=== PATIENT | female | born 1960 | race Caucasian/White ===

== ENCOUNTER 2018-05-31 13:11 | Inpatient (IN) | payer BC, OTHER ==
[2018-05-31 13:19] VITALS: BMI 20.2
--- NOTE | 2018-05-31 13:57 | C.PDOC ---
History Of Present Illness Patient is a 57 year old female, with a PMHx of chronic SOB, lung cancer with mets to the bone, and lung removal in 2018, who presents to the ED c/o left hip and left thigh pain. Patient states that her pain is so bad that she even needs assistance getting up to go to the bathroom. She notes decreased activity and a decrease PO tolerance. She has a remote hx of smoking and no longer does, but states that her is a current smoker. She denies any CP, vomiting, diarrhea, abdominal pain, fever, or chills. Chief Complaint (Nursing): Shortness Of Breath History Per: Patient History/Exam Limitations: no limitations Current Symptoms Are (Timing): Still Present Quality: "Pain" (left thigh and left hip) Associated Symptoms: denies: Fever, Chills, Chest Pain Recent travel outside of the [place]: No Additional History Per: Patient Past Medical History Reviewed: Historical Data, Nursing Documentation, Vital Signs Vital Signs: Last Vital Signs Temp 97.9 F 05/31/18 13:19 Pulse 116 H 05/31/18 13:19 Resp 22 05/31/18 13:19 BP 108/89 05/31/18 13:19 Pulse Ox 96 05/31/18 13:19 - Medical History PMH: Anxiety, Asthma, Bronchitis, COPD Surgical History: No Surg Hx Denies: Pacemaker - [facility] Procedures ENDOSCOPIC BRONCHIAL BX (07/05/13) Family History: States: No Known Family Hx - Social History Hx Alcohol Use: No Hx Substance Use: No - Immunization History Hx Tetanus Toxoid Vaccination: No Hx Influenza Vaccination: No Hx Pneumococcal Vaccination: No Review Of Systems Constitutional: Negative for: Fever, Chills Cardiovascular: Negative for: Chest Pain Respiratory: Positive for: Shortness of Breath (chronic ) Gastrointestinal: Negative for: Vomiting, Abdominal Pain, Diarrhea Musculoskeletal: Positive for: Leg Pain (left thigh and left hip ) Physical Exam - Physical Exam Appears: Non-toxic Skin: Warm, Dry, Pale Eye(s): bilateral: Conjunctiva Pale Oral Mucosa: Dry Neck: Normal ROM, Supple Chest: Symmetrical, No Deformity Cardiovascular: Rhythm Regular, No Murmur Respiratory: Normal Breath Sounds, No Rales, No Rhonchi, No Wheezing Gastrointestinal/Abdominal: Soft, No Tenderness, No Guarding, No Rebound Extremity: No Tenderness (hip joint ), Capillary Refill (less than 2 seconds ) Extremity: Left: Painful To Bear Weight, Unable To Bear Weight (unable to stand or bear weight left hip ) Neurological/Psych: Oriented x3, Normal Speech, Normal Cognition ED Course And Treatment - Laboratory Results Result Diagrams: 06/04/18 07:51 06/04/18 07:51 ECG: Interpreted By Me, Viewed By Me ECG Rhythm: Sinus Tachycardia Interpretation Of ECG: No ST elevation or depression. Rate From EC O2 Sat by Pulse Oximetry: 96 (on RA) Pulse Ox Interpretation: Normal - Other Rad CXR X-Ray: Viewed By Me, Read By Radiologist Interpretation: IMPRESSION: Complete opacification of the right hemithorax which may be related to large pleural effusion, complete lung atelectasis or prior pneumonectomy given presence of sternal wires and right paramediastinal surgical clips. Correlation with surgical history is and any prior imaging is recommended. Alternatively, CT scan of the chest can be obtained for further evaluation. Medical Decision Making Medical Decision Making: Plan: EKG, Bloodwork, CXR ordered and reviewed. IV Fluids administered. Impression: Pain management Multiple calls to Dr. Rodrigues. Unsuccessful. On reassessment, patient is c/o of more pain. Morphine prescribed for pain. Dr. Guthrie called and is aware of patient's chronic pain. 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 Agrees with admission because of her pain. Disposition Discussed With : Bret Benjamin - Disposition Disposition: HOSPITALIZED Disposition Time: 17:56 Condition: GUARDED - POA Present On Arrival: None - Clinical Impression Clinical Impression: Chronic pain due to neoplasm, Unable to ambulate - Scribe Statement The provider has reviewed the documentation as recorded by the Edi Saxena All medical record entries made by the Scribe were at my direction and personally dictated by me. I have reviewed the chart and agree that the record accurately reflects my personal performance of the history, physical exam, medical decision making, and the department course for this patient. I have also personally directed, reviewed, and agree with the discharge instructions and disposition. Decision To Admit - Pt Status Changed To: Hospital Disposition Of: Inpatient - Admit Certification Admit to Inpatient:: After my assessment, the patient will require hospitalization for at least two midnights. This is because of the severity of symptoms shown, intensity of services needed, and/or the medical risk in this patient being treated as an outpatient. - InPatient: Physician Admission Certification: I certify that this patient requires 2 or more midnights of care for the following reason:: chronic pain - . Bed Request Type: Regular Admitting Physician: Bret Benjamin Patient Diagnosis: Chronic pain due to neoplasm, Unable to ambulate
[2018-05-31] MEDS ORDERED: Sodium Chloride 0.9% 500 ML IV ONE (14:21)
[2018-05-31] MEDS ORDERED: Sodium Chloride 0.9% 1,000 ML ONE (14:33)
[2018-05-31 14:34] LABS: BASO % 0.4 % (0.0-2.0); EOS % 0.7 % (0.0-4.0); LYMPH # 0.3 K/uL (1.0-4.3); MEAN CELL VOLUME 88.5 fL (81.0-99.0); MEAN CORPUSCULAR HGB CONC 32.8 g/dL (33.0-37.0); MEAN PLATELET VOLUME 8.6 fL (7.2-11.7); MONO # 0.8 K/uL (0.0-0.8); MONO % 15.6 % (0.0-10.0); NEUT # 3.8 K/uL (1.8-7.0); NEUT % 76.3 % (50.0-75.0); NRBC % 0.1 % (0.0-2.0); PLATELET COUNT 250 K/uL (130-400); RBC 4.12 Mil/uL (3.80-5.20); RED CELL DISTRIBUTION WIDTH 15.8 % (11.5-14.5); WHITE BLOOD COUNT 4.9 K/uL (4.8-10.8)
[2018-05-31 14:45] LABS: BLOOD UREA NITROGEN 13 mg/dL (7-17); CALCIUM 9.5 mg/dl (8.6-10.4); GFR NON-AFRICAN AMERICAN > 60
[2018-05-31 14:49] LABS: ALB/GLOB RATIO 1.2 (1.0-2.1); ALBUMIN 3.9 g/dL (3.5-5.0); ALT/SGPT 17 U/L (9-52); AST/SGOT 32 U/L (14-36)
[2018-05-31 15:11] LABS: BANDS 1 % (0-2); LYMPHOCYTE 4 % (20-40); MONOCYTE 11 % (0-10); NEUTROPHIL 84 % (50-75); PLATELET ESTIMATE NORMAL (NORMAL); TOTAL CELLS COUNTED 100
--- NOTE | 2018-05-31 15:48 | RAD ---
Date of service: 05/31/2018 PROCEDURE: CHEST RADIOGRAPH, 1 VIEW HISTORY: abd pain COMPARISON: Chest radiograph dated 07/05/2013. FINDINGS: LUNGS: Complete opacification of the right hemithorax left lung clear. PLEURA: Complete opacification of the right hemithorax. No no left pleural effusion. No pneumothorax. CARDIOVASCULAR: Prior sternotomy with sternal wires and surgical clips in place. Cardiomediastinal silhouette cannot be adequately evaluated secondary to adjacent, obscuring lung pathology. OSSEOUS STRUCTURES: Unchanged VISUALIZED UPPER ABDOMEN: Normal. OTHER FINDINGS: Left paramediastinal surgical clips. IMPRESSION: Complete opacification of the right hemithorax which may be related to large pleural effusion, complete lung atelectasis or prior pneumonectomy given presence of sternal wires and right paramediastinal surgical clips. Correlation with surgical history is and any prior imaging is recommended. Alternatively, CT scan of the chest can be obtained for further evaluation.
[2018-05-31] MEDS ORDERED: Morphine 4 MG/ML VIAL ONE (18:12)
--- NOTE | 2018-05-31 19:01 | CP.PCM.HP ---
History of Present Illness - History of Present Illness History of Present Illness: 57 year old female, with a PMHx of chronic SOB, lung cancer with mets to the bone, and lung removal in 2018, who presents to the ED c/o left hip and left thigh pain. Patient states that her pain is so bad that she even needs assistance getting up to go to the bathroom. She notes decreased activity and a decrease PO tolerance. She has a remote hx of smoking and no longer does, but states that her is a current smoker. She denies any CP, vomiting, diarrhea, abdominal pain, fever, or chills. Present on Admission - Present on Admission Any Indicators Present on Admission: No History of DVT/PE: No History of Uncontrolled Diabetes: No Urinary Catheter: No Decubitus Ulcer Present: No Review of Systems - Review of Systems All systems: reviewed and no additional remarkable complaints except (As mentioned in HPI) Past Patient History - Past Medical History & Family History Past Medical History?: Yes - Past Social History Smoking Status: Former Smoker - CARDIAC Hx Pacemaker: No - PULMONARY Hx Asthma: Yes Hx Bronchitis: Yes Hx Chronic Obstructive Pulmonary Disease (COPD): Yes - NEUROLOGICAL Hx Paralysis: No - HEMATOLOGICAL/ONCOLOGICAL Hx Blood Transfusions: No - MUSCULOSKELETAL/RHEUMATOLOGICAL Hx Musculoskeletal Disorders: Yes (BONE PAIN IN LEGS) - PSYCHIATRIC Hx Anxiety: Yes Hx Substance Use: No - SURGICAL HISTORY Hx Surgeries: Yes Other/Comment: R lung cancer removed - ANESTHESIA Hx Anesthesia Reactions: No Hx Malignant Hyperthermia: No Meds Allergies/Adverse Reactions: Allergies Allergy/AdvReac Type Severity Reaction Status Date / Time No Known Allergies Allergy Verified 05/31/18 13:19 Physical Exam - Head Exam Head Exam: NORMAL INSPECTION - Eye Exam Eye Exam: Normal appearance - ENT Exam ENT Exam: Mucous Membranes Moist - Respiratory Exam Respiratory Exam: Decreased Breath Sounds - Cardiovascular Exam Cardiovascular Exam: REGULAR RHYTHM, +S1, +S2 - GI/Abdominal Exam GI & Abdominal Exam: Normal Bowel Sounds, Soft - Extremities Exam Extremities exam: Positive for: normal inspection Results - Vital Signs Recent Vital Signs: Last Vital Signs Temp 98.6 F 05/31/18 18:54 Pulse 113 H 05/31/18 18:54 Resp 20 05/31/18 18:54 BP 130/84 05/31/18 18:54 Pulse Ox 98 05/31/18 18:54 - Labs Result Diagrams: 05/31/18 14:29 05/31/18 14:29 Labs: Laboratory Results - last 24 hr 05/31/18 05/31/18 14:29 14:29 WBC 4.9 RBC 4.12 Hgb 12.0 Hct 36.4 MCV 88.5 MCH 29.0 MCHC 32.8 L RDW 15.8 H Plt Count 250 MPV 8.6 Neut % (Auto) 76.3 H Lymph % (Auto) 7.0 L Harlan % (Auto) 15.6 H Eos % (Auto) 0.7 Baso % (Auto) 0.4 Neut # (Auto) 3.8 Lymph # (Auto) 0.3 L Harlan # (Auto) 0.8 Eos # (Auto) 0.0 Baso # (Auto) 0.0 Neutrophils % (Manual) 84 H Band Neutrophils % 1 Lymphocytes % (Manual) 4 L Monocytes % (Manual) 11 H Platelet Estimate Normal RBC Morphology Normal Sodium 136 Potassium 4.0 Chloride 97 L Carbon Dioxide 31 H Anion Gap 12 BUN 13 Creatinine 0.5 L Est GFR ( Amer) > 60 Est GFR (Non-Af Amer) > 60 Random Glucose 105 Calcium 9.5 Total Bilirubin 0.9 AST 32 ALT 17 Alkaline Phosphatase 128 H Total Protein 7.3 Albumin 3.9 Globulin 3.4 Albumin/Globulin Ratio 1.2 Assessment & Plan (1) Chronic pain due to neoplasm Status: Acute (2) Unable to ambulate Status: Acute (3) Metastatic lung cancer (metastasis from lung to other site) Status: Acute (4) Metastatic cancer to lung Status: Acute (5) History of pneumonectomy Status: Acute - Assessment and Plan (Free Text) Plan: Pain control Oncology consult Bronchodilators Brio Ellipta 200/25 mcg 1 puff daily Physical therapy evaluation Very poor prognosis DVT/GI prophylaxis
[2018-05-31] MEDS: HYDROmorphone 1 mg/ml ISec IVP PRN (20:38)
[2018-05-31] MEDS: Albuterol-Ipratrop 3 mg / 0.5 (3 ml) UD INH SCH (21:30)
[2018-06-01] MEDS: HYDROmorphone 1 mg/ml ISec IVP PRN ×5 (00:43→20:13)
[2018-06-01] MEDS: Albuterol-Ipratrop 3 mg / 0.5 (3 ml) UD INH SCH ×5 (01:19→20:09)
[2018-06-01] MEDS: Fluticasone-Vilanterol 200/25mcg Diskus INH SCH (07:20)
--- NOTE | 2018-06-01 08:47 | PN ---
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 She was treated about four years ago with a stage III lung cancer and for this, she received radiation therapy plus chemotherapy and she did quite well for several years, about less than a year ago, may be 11 months ago, she started having rising CEA level and we did a biopsy of the residual mass and here it showed a recurring cancer. She had a complete pneumonectomy at [facility] by Dr. Rufina Carrillo and she seemed to be doing fine. The only residual was severe shortness of breath. She was walking around with only one lung. However, she comes to the office about a month ago and she was in severe pain in her hip and when we evaluated her, she had bone metastasis now and right pleural lesions along the lining of the pleura. We did a biopsy and it was positive for the cancer. The biopsy was just done five days ago and it showed squamous cell carcinoma of the same as what she had four or five years ago. In any event, we just finished radiation therapy to the sacrum, but she is still having severe pain. When she came to the office yesterday, she had more markedly increasing pain as well as shortness of breath, weakness, tiredness. We were not sure if the patient had hypercalcemia, severe anemia, infection, pneumonia as well as the need for pain control. She is seeing an outside pain management service. They gave her a shot and they gave her Vicodin, but this is clearly not helping her. So, we advised admission to the hospital through the ambulance. PHYSICAL EXAMINATION: SKIN: No petechiae. HEENT: Anicteric. NODES: Nonpalpable in the axillary, cervical, supraclavicular, or inguinal regions. LUNGS: Shows some decreased breath sounds on the lung due to the pneumonectomy. BACK: No vertebral tenderness. HEART: S1 and S2, but rate in the office yesterday was at 125 sitting and blood pressure lower was 101. Now, she runs at 124 systolic. ABDOMEN: No organomegaly. EXTREMITIES: No edema. CENTRAL NERVOUS SYSTEM: No focal finding. At present, the laboratory test really were not bad. She did not have hypercalcemia. Her hemoglobin was 12. No hyponatremia. BUN was 13. It was rather surprising in terms of the labs and how she is feeling. She just have complete out one side of the lung. This is due to the pneumonectomy. At this point, she is being put on Dilaudid 1 mg every four hours. She needs better pain control, but if she stays afebrile we will go and discharge her in another day or two. She is due to get chemotherapy as soon as possible with carboplatin and Taxotere as soon as she gets out of the hospital, if possible, but otherwise it will be next week. Joel MD Brandon (Delete this signature block when dictator is a preceptor.) cc: MD Tacho (Delete if not dictated.)
[2018-06-01] MEDS: Enoxaparin 40 mg Syringe SC SCH (10:24)
--- NOTE | 2018-06-01 11:42 | CARD ---
APPROVED REPORT Date of service: 05/31/2018 EKG Measurement Heart [id number] <Conclusion> Sinus tachycardia Otherwise normal ECG
--- NOTE | 2018-06-01 15:44 | CP.PCM.PN ---
Subjective - Date & Time of Evaluation Date of Evaluation: 06/01/18 Time of Evaluation: 15:42 - Subjective Subjective: Patient is seen and examined No events overnight Complains of pain Objective - Vital Signs/Intake and Output Vital Signs (last 24 hours): Temp Pulse Resp BP Pulse Ox 98.5 F 95 H 20 106/72 98 06/01/18 08:00 06/01/18 08:00 06/01/18 08:00 06/01/18 08:00 06/01/18 08:00 Intake and Output: 06/01/18 06/01/18 06:59 18:59 Intake Total 150 240 Balance 150 240 - Medications Medications: Current Medications Albuterol/Ipratropium (Duoneb 3 Mg/0.5 Mg (3 Ml) Ud) 3 ml INH RQ6 [facility] Last Admin: 06/01/18 13:45 Dose: Not Given Enoxaparin Sodium (Lovenox) 40 mg SC DAILY [facility] Last Admin: 06/01/18 10:24 Dose: 40 mg Fluticasone/Vilanterol (Breo Ellipta 200-25 Mcg Inh) 1 puff INH RQD [facility] Last Admin: 06/01/18 07:20 Dose: Not Given Gabapentin (Neurontin) 100 mg PO BID [facility] Last Admin: 06/01/18 10:24 Dose: 100 mg Hydromorphone HCl (Dilaudid) 1 mg IVP Q4H PRN PRN Reason: Pain, severe (8-10) Last Admin: 06/01/18 14:51 Dose: 1 mg Influenza Virus Vaccine (Flucelvax Quad [id number] Syr) 60 mcg IM .ONCE ONE Stop: 06/03/18 10:01 - Labs Labs: 05/31/18 14:29 05/31/18 14:29 - Head Exam Head Exam: NORMAL INSPECTION - Eye Exam Eye Exam: Normal appearance - ENT Exam ENT Exam: Mucous Membranes Moist - Respiratory Exam Respiratory Exam: Clear to Ausculation Bilateral, NORMAL BREATHING PATTERN - Cardiovascular Exam Cardiovascular Exam: REGULAR RHYTHM, +S1, +S2 - GI/Abdominal Exam GI & Abdominal Exam: Soft, Normal Bowel Sounds - Extremities Exam Extremities Exam: Normal Inspection Assessment and Plan (1) Chronic pain due to neoplasm Status: Acute (2) Unable to ambulate Status: Acute (3) Metastatic lung cancer (metastasis from lung to other site) Status: Acute (4) Metastatic cancer to lung Status: Acute (5) History of pneumonectomy Status: Acute - Assessment and Plan (Free Text) Plan: Bronchodilators Brio Ellipta 200/25 mcg 1 puff daily Dilaudid for pain control Supportive care DVT/GI prophylaxis
--- NOTE | 2018-06-01 18:40 | CP.PCM.PN ---
Subjective - Date & Time of Evaluation Date of Evaluation: 06/01/18 Time of Evaluation: 08:00 - Subjective Subjective: clinically same Objective - Vital Signs/Intake and Output Vital Signs (last 24 hours): Temp Pulse Resp BP Pulse Ox 97.3 F L 109 H 20 140/71 95 06/01/18 16:00 06/01/18 16:00 06/01/18 16:00 06/01/18 16:00 06/01/18 16:00 Intake and Output: 06/01/18 06/01/18 06:59 18:59 Intake Total 150 240 Balance 150 240 - Medications Medications: Current Medications Albuterol/Ipratropium (Duoneb 3 Mg/0.5 Mg (3 Ml) Ud) 3 ml INH RQ6 [facility] Last Admin: 06/01/18 13:45 Dose: Not Given Enoxaparin Sodium (Lovenox) 40 mg SC DAILY [facility] Last Admin: 06/01/18 10:24 Dose: 40 mg Fluticasone/Vilanterol (Breo Ellipta 200-25 Mcg Inh) 1 puff INH RQD [facility] Last Admin: 06/01/18 07:20 Dose: Not Given Gabapentin (Neurontin) 100 mg PO BID [facility] Last Admin: 06/01/18 17:30 Dose: 100 mg Hydromorphone HCl (Dilaudid) 1 mg IVP Q4H PRN PRN Reason: Pain, severe (8-10) Last Admin: 06/01/18 14:51 Dose: 1 mg Influenza Virus Vaccine (Flucelvax Quad [id number] Syr) 60 mcg IM .ONCE ONE Stop: 06/03/18 10:01 - Labs Labs: 05/31/18 14:29 05/31/18 14:29 - Constitutional Appears: Well - Head Exam Head Exam: ATRAUMATIC, NORMAL INSPECTION, NORMOCEPHALIC - Eye Exam Eye Exam: EOMI, Normal appearance, PERRL Pupil Exam: NORMAL ACCOMODATION, PERRL - ENT Exam ENT Exam: Mucous Membranes Moist, Normal Exam - Neck Exam Neck Exam: Full ROM, Normal Inspection. absent: Lymphadenopathy - Respiratory Exam Respiratory Exam: Decreased Breath Sounds - Cardiovascular Exam Cardiovascular Exam: REGULAR RHYTHM, +S1, +S2 - GI/Abdominal Exam GI & Abdominal Exam: Soft, Diminished Bowel Sounds - Rectal Exam Rectal Exam: Deferred Assessment and Plan (1) Chronic pain due to neoplasm Status: Acute (2) History of pneumonectomy Status: Acute (3) Metastatic cancer to lung Status: Acute (4) Metastatic lung cancer (metastasis from lung to other site) Status: Acute (5) Unable to ambulate Status: Acute - Assessment and Plan (Free Text) Plan: breo DVT prophylaxis Albuterol Gabapentin Dilaudid patient is in severe pain will discuss with him on Dr. Taylor and pulmonary As ordered
[2018-06-02] MEDS: HYDROmorphone 1 mg/ml ISec IVP PRN ×6 (00:21→22:05)
[2018-06-02] MEDS: Albuterol-Ipratrop 3 mg / 0.5 (3 ml) UD INH SCH ×4 (02:10→20:34)
[2018-06-02] MEDS: Fluticasone-Vilanterol 200/25mcg Diskus INH SCH (07:40)
[2018-06-02] MEDS: Enoxaparin 40 mg Syringe SC SCH (10:30)
--- NOTE | 2018-06-02 15:12 | CP.PCM.PN ---
Objective - Vital Signs/Intake and Output Vital Signs (last 24 hours): Temp Pulse Resp BP Pulse Ox 98.0 F 105 H 20 118/81 95 06/02/18 07:30 06/02/18 07:30 06/02/18 07:30 06/02/18 07:30 06/02/18 07:30 Intake and Output: 06/02/18 06/02/18 06:59 18:59 Intake Total 200 Balance 200 - Medications Medications: Current Medications Albuterol/Ipratropium (Duoneb 3 Mg/0.5 Mg (3 Ml) Ud) 3 ml INH RQ6 [facility] Last Admin: 06/02/18 07:40 Dose: Not Given Enoxaparin Sodium (Lovenox) 40 mg SC DAILY [facility] Last Admin: 06/02/18 10:30 Dose: 40 mg Fentanyl (Duragesic) 1 patch TD Q72H [facility] Last Admin: 06/02/18 12:11 Dose: 1 patch Fluticasone/Vilanterol (Breo Ellipta 200-25 Mcg Inh) 1 puff INH RQD [facility] Last Admin: 06/02/18 07:40 Dose: Not Given Gabapentin (Neurontin) 100 mg PO BID [facility] Last Admin: 06/02/18 10:31 Dose: 100 mg Hydromorphone HCl (Dilaudid) 2 mg IVP Q4H PRN PRN Reason: Pain, severe (8-10) Last Admin: 06/02/18 12:48 Dose: 2 mg Influenza Virus Vaccine (Flucelvax Quad [id number] Syr) 60 mcg IM .ONCE ONE Stop: 06/03/18 10:01 - Labs Labs: 05/31/18 14:29 05/31/18 14:29 Assessment and Plan (1) Chronic pain due to neoplasm Status: Acute (2) Unable to ambulate Status: Acute (3) Metastatic lung cancer (metastasis from lung to other site) Status: Acute (4) Metastatic cancer to lung Status: Acute (5) History of pneumonectomy Status: Acute
--- NOTE | 2018-06-02 20:14 | CP.PCM.PN ---
Subjective - Date & Time of Evaluation Date of Evaluation: 06/02/18 Time of Evaluation: 08:00 - Subjective Subjective: clinically same Objective - Vital Signs/Intake and Output Vital Signs (last 24 hours): Temp Pulse Resp BP Pulse Ox 97.8 F 111 H 20 101/69 95 06/02/18 16:13 06/02/18 16:13 06/02/18 16:13 06/02/18 16:13 06/02/18 16:13 - Medications Medications: Current Medications Albuterol/Ipratropium (Duoneb 3 Mg/0.5 Mg (3 Ml) Ud) 3 ml INH RQ6 [facility] Last Admin: 06/02/18 13:20 Dose: Not Given Enoxaparin Sodium (Lovenox) 40 mg SC DAILY [facility] Last Admin: 06/02/18 10:30 Dose: 40 mg Fentanyl (Duragesic) 1 patch TD Q72H [facility] Last Admin: 06/02/18 12:11 Dose: 1 patch Fluticasone/Vilanterol (Breo Ellipta 200-25 Mcg Inh) 1 puff INH RQD [facility] Last Admin: 06/02/18 07:40 Dose: Not Given Gabapentin (Neurontin) 100 mg PO BID [facility] Last Admin: 06/02/18 18:04 Dose: 100 mg Hydromorphone HCl (Dilaudid) 2 mg IVP Q4H PRN PRN Reason: Pain, severe (8-10) Last Admin: 06/02/18 17:02 Dose: 2 mg Influenza Virus Vaccine (Flucelvax Quad [id number] Syr) 60 mcg IM .ONCE ONE Stop: 06/03/18 10:01 - Labs Labs: 05/31/18 14:29 05/31/18 14:29 - Constitutional Appears: Well - Head Exam Head Exam: ATRAUMATIC, NORMAL INSPECTION, NORMOCEPHALIC - Eye Exam Eye Exam: EOMI, Normal appearance, PERRL Pupil Exam: NORMAL ACCOMODATION, PERRL - ENT Exam ENT Exam: Mucous Membranes Moist, Normal Exam - Neck Exam Neck Exam: Full ROM, Normal Inspection. absent: Lymphadenopathy - Respiratory Exam Respiratory Exam: Decreased Breath Sounds - Cardiovascular Exam Cardiovascular Exam: REGULAR RHYTHM, +S1, +S2 - GI/Abdominal Exam GI & Abdominal Exam: Soft, Diminished Bowel Sounds - Rectal Exam Rectal Exam: Deferred Assessment and Plan (1) Chronic pain due to neoplasm Status: Acute (2) History of pneumonectomy Status: Acute (3) Metastatic cancer to lung Status: Acute (4) Metastatic lung cancer (metastasis from lung to other site) Status: Acute (5) Unable to ambulate Status: Acute - Assessment and Plan (Free Text) Plan: Spoke to Dr. Taylor today morning who wants patients to some kind of a patch so patch add a Duragesic patch will see how effective it will be Case discussed with the patient at length Continue Brio Continue DuoNeb As ordered
[2018-06-03] MEDS: Albuterol-Ipratrop 3 mg / 0.5 (3 ml) UD INH SCH ×4 (02:12→19:15)
[2018-06-03] MEDS: HYDROmorphone 1 mg/ml ISec IVP PRN ×3 (02:17→12:05)
[2018-06-03] MEDS: Fluticasone-Vilanterol 200/25mcg Diskus INH SCH (07:40)
[2018-06-03] MEDS ORDERED: Influenza Vaccine 60 mcg/0.5 mL SYR (4YR UP) IM ONE (10:00)
[2018-06-03] MEDS: Enoxaparin 40 mg Syringe SC SCH (10:06)
[2018-06-03] MEDS: Magnesium Hydroxide Susp 30 ml UD PO SCH (10:06)
--- NOTE | 2018-06-03 15:00 | CP.PCM.PN ---
Subjective - Date & Time of Evaluation Date of Evaluation: 06/03/18 Time of Evaluation: 15:00 Objective - Vital Signs/Intake and Output Vital Signs (last 24 hours): Temp Pulse Resp BP Pulse Ox 98.0 F 102 H 20 116/76 95 06/03/18 07:43 06/03/18 07:43 06/03/18 07:43 06/03/18 07:43 06/03/18 07:43 Intake and Output: 06/03/18 06/03/18 06:59 18:59 Intake Total 120 480 Balance 120 480 - Medications Medications: Current Medications Albuterol/Ipratropium (Duoneb 3 Mg/0.5 Mg (3 Ml) Ud) 3 ml INH RQ6 [facility] Last Admin: 06/03/18 13:40 Dose: Not Given Enoxaparin Sodium (Lovenox) 40 mg SC DAILY [facility] Last Admin: 06/03/18 10:06 Dose: 40 mg Fentanyl (Duragesic) 1 patch TD Q72H [facility] Last Admin: 06/03/18 10:06 Dose: 1 patch Fluticasone/Vilanterol (Breo Ellipta 200-25 Mcg Inh) 1 puff INH RQD [facility] Last Admin: 06/03/18 07:40 Dose: Not Given Gabapentin (Neurontin) 100 mg PO BID [facility] Last Admin: 06/03/18 10:06 Dose: 100 mg Hydromorphone HCl (Dilaudid) 2 mg IVP Q4H PRN PRN Reason: Pain, severe (8-10) Last Admin: 06/03/18 12:05 Dose: 2 mg Magnesium Hydroxide (Milk Of Magnesia) 30 ml PO DAILY [facility] Last Admin: 06/03/18 10:06 Dose: 30 ml - Labs Labs: 05/31/18 14:29 05/31/18 14:29 Assessment and Plan (1) Chronic pain due to neoplasm Status: Acute (2) Unable to ambulate Status: Acute (3) Metastatic lung cancer (metastasis from lung to other site) Status: Acute (4) Metastatic cancer to lung Status: Acute (5) History of pneumonectomy Status: Acute
--- NOTE | 2018-06-03 17:15 | CP.PCM.PN ---
Subjective - Date & Time of Evaluation Date of Evaluation: 06/03/18 Time of Evaluation: 08:00 - Subjective Subjective: clinically same Objective - Vital Signs/Intake and Output Vital Signs (last 24 hours): Temp Pulse Resp BP Pulse Ox 98.4 F 114 H 20 97/67 L 95 06/03/18 15:24 06/03/18 15:24 06/03/18 15:24 06/03/18 15:24 06/03/18 15:24 Intake and Output: 06/03/18 06/03/18 06:59 18:59 Intake Total 120 480 Balance 120 480 - Medications Medications: Current Medications Albuterol/Ipratropium (Duoneb 3 Mg/0.5 Mg (3 Ml) Ud) 3 ml INH RQ6 [facility] Last Admin: 06/03/18 13:40 Dose: Not Given Enoxaparin Sodium (Lovenox) 40 mg SC DAILY [facility] Last Admin: 06/03/18 10:06 Dose: 40 mg Fentanyl (Duragesic) 1 patch TD Q72H [facility] Last Admin: 06/03/18 10:06 Dose: 1 patch Fluticasone/Vilanterol (Breo Ellipta 200-25 Mcg Inh) 1 puff INH RQD [facility] Last Admin: 06/03/18 07:40 Dose: Not Given Gabapentin (Neurontin) 100 mg PO BID [facility] Last Admin: 06/03/18 10:06 Dose: 100 mg Hydromorphone HCl (Dilaudid) 2 mg IVP Q4H PRN PRN Reason: Pain, severe (8-10) Last Admin: 06/03/18 12:05 Dose: 2 mg Magnesium Hydroxide (Milk Of Magnesia) 30 ml PO DAILY [facility] Last Admin: 06/03/18 10:06 Dose: 30 ml - Labs Labs: 05/31/18 14:29 05/31/18 14:29 - Constitutional Appears: Well - Head Exam Head Exam: ATRAUMATIC, NORMAL INSPECTION, NORMOCEPHALIC - Eye Exam Eye Exam: EOMI, Normal appearance, PERRL Pupil Exam: NORMAL ACCOMODATION, PERRL - ENT Exam ENT Exam: Mucous Membranes Moist, Normal Exam - Neck Exam Neck Exam: Full ROM, Normal Inspection. absent: Lymphadenopathy - Respiratory Exam Respiratory Exam: Decreased Breath Sounds - Cardiovascular Exam Cardiovascular Exam: REGULAR RHYTHM, +S1, +S2 - GI/Abdominal Exam GI & Abdominal Exam: Soft, Diminished Bowel Sounds - Rectal Exam Rectal Exam: Deferred Assessment and Plan - Assessment and Plan (Free Text) Plan: Abdominal patch is helping the patient's I discussed with Dr. bella Discussed with the patient's Mary Calles As ordered
[2018-06-03] MEDS ORDERED: HYDROmorphone 1 mg/ml ISec IVP STA (17:31)
[2018-06-04] MEDS: Albuterol-Ipratrop 3 mg / 0.5 (3 ml) UD INH SCH ×3 (01:31→21:09)
[2018-06-04] MEDS: HYDROmorphone 1 mg/ml ISec IVP PRN (04:04)
[2018-06-04] MEDS: Fluticasone-Vilanterol 200/25mcg Diskus INH SCH (07:40)
[2018-06-04 08:03] LABS: BASO % 0.4 % (0.0-2.0); EOS % 0.7 % (0.0-4.0); HEMOGLOBIN 11.5 g/dL (11.0-16.0); LYMPH # 0.5 K/uL (1.0-4.3); LYMPH % 13.5 % (20.0-40.0); MEAN CELL VOLUME 88.5 fL (81.0-99.0); MEAN CORPUSCULAR HEMOGLOBIN 29.1 pg (27.0-31.0); MEAN CORPUSCULAR HGB CONC 32.9 g/dL (33.0-37.0); MEAN PLATELET VOLUME 8.5 fL (7.2-11.7); MONO # 0.6 K/uL (0.0-0.8); MONO % 18.7 % (0.0-10.0); NEUT # 2.3 K/uL (1.8-7.0); NEUT % 66.7 % (50.0-75.0); RBC 3.94 Mil/uL (3.80-5.20); RED CELL DISTRIBUTION WIDTH 15.6 % (11.5-14.5); WHITE BLOOD COUNT 3.5 K/uL (4.8-10.8)
[2018-06-04 08:13] LABS: BLOOD UREA NITROGEN 13 mg/dL (7-17); GFR NON-AFRICAN AMERICAN > 60
[2018-06-04] MEDS: Magnesium Hydroxide Susp 30 ml UD PO SCH (09:10)
[2018-06-04] MEDS: Enoxaparin 40 mg Syringe SC SCH (09:11)
--- NOTE | 2018-06-04 14:17 | CON ---
DATE: 06/04/2018 ONCOLOGY CONSULTATION HISTORY OF PRESENT ILLNESS: This is a 57-year-old woman with lung cancer widely metastatic to her bones. She is really being admitted to the hospital for severe pain in her legs specifically just generalized. We had just finished radiation therapy to the hip, but she is still in severe pain. We finally got her up to Duragesic patch of 75, and on that dose, lying in bed is far, far more comfortable. I am also giving her milk of magnesia 30 mL p.o. to prevent constipation from that kind of a dose and that she should take every day. She still has pain when she is just getting out of the bed and sitting up she has pain, but her blood pressure is about 100 and so it is hard to continue to increase the pain medicines. We are not going to get her in perfect control. She is due for chemotherapy in the office as soon as she gets out of the hospital. We can start her on Thursday or Thursday, so I told her if she is discharged over the weekend, she knows to see me on Thursday; if she is still here on Thursday, I will be seeing her. In the meantime, she has a Duragesic patch that was started at 75 on , and she will run out of that patch by Thursday, so she will need to have beyond discharge a Duragesic patch of 75. Joel Taylor MD
--- NOTE | 2018-06-04 17:44 | CP.PCM.PN ---
Subjective - Date & Time of Evaluation Date of Evaluation: 06/04/18 Time of Evaluation: 17:44 Objective - Vital Signs/Intake and Output Vital Signs (last 24 hours): Temp Pulse Resp BP Pulse Ox 101.7 F H 111 H 20 100/68 96 06/04/18 16:06 06/04/18 07:55 06/04/18 07:55 06/04/18 07:55 06/04/18 07:55 Intake and Output: 06/04/18 06/04/18 06:59 18:59 Intake Total 820 Balance 820 - Medications Medications: Current Medications Acetaminophen (Tylenol 325mg Tab) 650 mg PO Q6 PRN PRN Reason: Fever >100.4 F Last Admin: 06/04/18 16:06 Dose: 650 mg Albuterol/Ipratropium (Duoneb 3 Mg/0.5 Mg (3 Ml) Ud) 3 ml INH RQ6 [facility] Last Admin: 06/04/18 07:40 Dose: Not Given Enoxaparin Sodium (Lovenox) 40 mg SC DAILY [facility] Last Admin: 06/04/18 09:11 Dose: 40 mg Fentanyl (Duragesic) 1 patch TD Q72H [facility] Last Admin: 06/04/18 17:08 Dose: 1 patch Fluticasone/Vilanterol (Breo Ellipta 200-25 Mcg Inh) 1 puff INH RQD [facility] Last Admin: 06/04/18 07:40 Dose: Not Given Hydromorphone HCl (Dilaudid) 2 mg IVP Q4H PRN PRN Reason: Pain, severe (8-10) Last Admin: 06/04/18 04:04 Dose: 2 mg Ceftriaxone Sodium 500 mg/ (Sodium Chloride) 100 mls @ 100 mls/hr IVPB Q24H [facility]; Protocol Magnesium Hydroxide (Milk Of Magnesia) 30 ml PO DAILY [facility] Last Admin: 06/04/18 09:10 Dose: 30 ml - Labs Labs: 06/04/18 07:51 06/04/18 07:51 Assessment and Plan (1) Chronic pain due to neoplasm Status: Acute (2) Unable to ambulate Status: Acute (3) Metastatic lung cancer (metastasis from lung to other site) Status: Acute (4) Metastatic cancer to lung Status: Acute (5) History of pneumonectomy Status: Acute
--- NOTE | 2018-06-04 19:57 | CP.PCM.PN ---
Subjective - Date & Time of Evaluation Date of Evaluation: 06/04/18 Time of Evaluation: 08:00 - Subjective Subjective: clinically same Objective - Vital Signs/Intake and Output Vital Signs (last 24 hours): Temp Pulse Resp BP Pulse Ox 101.7 F H 120 H 20 101/71 95 06/04/18 16:06 06/04/18 16:00 06/04/18 16:00 06/04/18 16:00 06/04/18 16:00 Intake and Output: 06/04/18 06/05/18 18:59 06:59 Intake Total 820 Balance 820 - Medications Medications: Current Medications Acetaminophen (Tylenol 325mg Tab) 650 mg PO Q6 PRN PRN Reason: Fever >100.4 F Last Admin: 06/04/18 16:06 Dose: 650 mg Albuterol/Ipratropium (Duoneb 3 Mg/0.5 Mg (3 Ml) Ud) 3 ml INH RQ6 [facility] Last Admin: 06/04/18 07:40 Dose: Not Given Enoxaparin Sodium (Lovenox) 40 mg SC DAILY [facility] Last Admin: 06/04/18 09:11 Dose: 40 mg Fentanyl (Duragesic) 1 patch TD Q72H [facility] Last Admin: 06/04/18 17:08 Dose: 1 patch Fluticasone/Vilanterol (Breo Ellipta 200-25 Mcg Inh) 1 puff INH RQD [facility] Last Admin: 06/04/18 07:40 Dose: Not Given Hydromorphone HCl (Dilaudid) 2 mg IVP Q4H PRN PRN Reason: Pain, severe (8-10) Last Admin: 06/04/18 04:04 Dose: 2 mg Cefepime HCl 2 gm/ Dextrose 50 mls @ 100 mls/hr IVPB Q12H [facility]; Protocol Vancomycin HCl 1,000 mg/ (Sodium Chloride) 250 mls @ 166.6 mls/hr IVPB Q12H [facility]; Protocol Magnesium Hydroxide (Milk Of Magnesia) 30 ml PO DAILY [facility] Last Admin: 06/04/18 09:10 Dose: 30 ml - Labs Labs: 06/04/18 07:51 06/04/18 07:51 - Constitutional Appears: Well - Head Exam Head Exam: ATRAUMATIC, NORMAL INSPECTION, NORMOCEPHALIC - Eye Exam Eye Exam: EOMI, Normal appearance, PERRL Pupil Exam: NORMAL ACCOMODATION, PERRL - ENT Exam ENT Exam: Mucous Membranes Moist, Normal Exam - Neck Exam Neck Exam: Full ROM, Normal Inspection. absent: Lymphadenopathy - Respiratory Exam Respiratory Exam: Decreased Breath Sounds - Cardiovascular Exam Cardiovascular Exam: REGULAR RHYTHM, +S1, +S2 - GI/Abdominal Exam GI & Abdominal Exam: Soft, Diminished Bowel Sounds - Rectal Exam Rectal Exam: Deferred Assessment and Plan (1) Chronic pain due to neoplasm Status: Acute (2) History of pneumonectomy Status: Acute (3) Metastatic cancer to lung Status: Acute (4) Metastatic lung cancer (metastasis from lung to other site) Status: Acute (5) Unable to ambulate Status: Acute
[2018-06-04] MEDS: Vancomycin 1 gm/NS 200 ml 1 GM/200 ML BAG IVPB SCH (21:08)
[2018-06-04] MEDS: Cefepime 2 GM in Dextrose 5% In Water 100 ML IVPB SCH (22:54)
[2018-06-05] MEDS: Albuterol-Ipratrop 3 mg / 0.5 (3 ml) UD INH SCH ×3 (01:00→13:39)
[2018-06-05] MEDS: Vancomycin 1 gm/NS 200 ml 1 GM/200 ML BAG IVPB SCH ×2 (07:57→20:31)
[2018-06-05] MEDS: Fluticasone-Vilanterol 200/25mcg Diskus INH SCH (08:23)
[2018-06-05] MEDS: Enoxaparin 40 mg Syringe SC SCH (11:36)
[2018-06-05] MEDS: Magnesium Hydroxide Susp 30 ml UD PO SCH (11:36)
[2018-06-05] MEDS: Cefepime 2 GM in Dextrose 5% In Water 100 ML IVPB SCH ×2 (11:39→21:21)
--- NOTE | 2018-06-05 11:43 | CP.PCM.PN ---
Subjective - Date & Time of Evaluation Date of Evaluation: 06/05/18 Time of Evaluation: 08:00 - Subjective Subjective: clinically same Objective - Vital Signs/Intake and Output Vital Signs (last 24 hours): Temp Pulse Resp BP Pulse Ox 99.9 F H 111 H 20 108/68 95 06/05/18 08:00 06/05/18 08:00 06/05/18 08:00 06/05/18 08:00 06/05/18 08:00 Intake and Output: 06/05/18 06/05/18 06:59 18:59 Intake Total 850 Output Total 400 Balance 450 - Medications Medications: Current Medications Acetaminophen (Tylenol 325mg Tab) 650 mg PO Q6 PRN PRN Reason: Fever >100.4 F Last Admin: 06/05/18 00:00 Dose: 650 mg Albuterol/Ipratropium (Duoneb 3 Mg/0.5 Mg (3 Ml) Ud) 3 ml INH RQ6 [facility] Last Admin: 06/05/18 08:23 Dose: Not Given Enoxaparin Sodium (Lovenox) 40 mg SC DAILY [facility] Last Admin: 06/05/18 11:36 Dose: 40 mg Fentanyl (Duragesic) 1 patch TD Q72H [facility] Last Admin: 06/04/18 17:08 Dose: 1 patch Fluticasone/Vilanterol (Breo Ellipta 200-25 Mcg Inh) 1 puff INH RQD [facility] Last Admin: 06/05/18 08:23 Dose: Not Given Hydromorphone HCl (Dilaudid) 2 mg IVP Q4H PRN PRN Reason: Pain, severe (8-10) Last Admin: 06/04/18 04:04 Dose: 2 mg Cefepime HCl 2 gm/ Dextrose 100 mls @ 100 mls/hr IVPB Q12H [facility]; Protocol Last Admin: 06/05/18 11:39 Dose: 100 mls/hr Vancomycin/Sodium Chloride (Vancomycin 1 Gm/Ns 200 Ml) 1 gm in 200 mls @ 133.333 mls/hr IVPB Q12H [facility]; Protocol Last Admin: 06/05/18 07:57 Dose: 133.333 mls/hr Magnesium Hydroxide (Milk Of Magnesia) 30 ml PO DAILY [facility] Last Admin: 06/05/18 11:36 Dose: 30 ml - Labs Labs: 06/04/18 07:51 06/04/18 07:51 - Constitutional Appears: Well - Head Exam Head Exam: ATRAUMATIC, NORMAL INSPECTION, NORMOCEPHALIC - Eye Exam Eye Exam: EOMI, Normal appearance, PERRL Pupil Exam: NORMAL ACCOMODATION, PERRL - ENT Exam ENT Exam: Mucous Membranes Moist, Normal Exam - Neck Exam Neck Exam: Full ROM, Normal Inspection. absent: Lymphadenopathy - Respiratory Exam Respiratory Exam: Decreased Breath Sounds - Cardiovascular Exam Cardiovascular Exam: REGULAR RHYTHM, +S1, +S2 - GI/Abdominal Exam GI & Abdominal Exam: Soft, Diminished Bowel Sounds - Rectal Exam Rectal Exam: Deferred Assessment and Plan (1) Chronic pain due to neoplasm Status: Acute (2) History of pneumonectomy Status: Acute (3) Metastatic cancer to lung Status: Acute (4) Metastatic lung cancer (metastasis from lung to other site) Status: Acute (5) Unable to ambulate Status: Acute
--- NOTE | 2018-06-05 18:51 | CP.PCM.CON ---
History of Present Illness - History of Present Illness History of Present Illness: dictated Past Patient History - Past Medical History & Family History Past Medical History?: Yes - Past Social History Smoking Status: Former Smoker - CARDIAC Hx Pacemaker: No - PULMONARY Hx Asthma: Yes Hx Bronchitis: Yes Hx Chronic Obstructive Pulmonary Disease (COPD): Yes - NEUROLOGICAL Hx Paralysis: No - HEMATOLOGICAL/ONCOLOGICAL Hx Blood Transfusions: No - MUSCULOSKELETAL/RHEUMATOLOGICAL Hx Musculoskeletal Disorders: Yes (BONE PAIN IN LEGS) - PSYCHIATRIC Hx Anxiety: Yes Hx Substance Use: No - SURGICAL HISTORY Hx Surgeries: Yes Other/Comment: R lung cancer removed - ANESTHESIA Hx Anesthesia Reactions: No Hx Malignant Hyperthermia: No Meds Allergies/Adverse Reactions: Allergies Allergy/AdvReac Type Severity Reaction Status Date / Time No Known Allergies Allergy Verified 05/31/18 13:19 - Medications Medications: Current Medications Acetaminophen (Tylenol 325mg Tab) 650 mg PO Q6 PRN PRN Reason: Fever >100.4 F Last Admin: 06/05/18 00:00 Dose: 650 mg Albuterol/Ipratropium (Duoneb 3 Mg/0.5 Mg (3 Ml) Ud) 3 ml INH RQ6 [facility] Last Admin: 06/05/18 13:39 Dose: 3 ml Enoxaparin Sodium (Lovenox) 40 mg SC DAILY [facility] Last Admin: 06/05/18 11:36 Dose: 40 mg Fentanyl (Duragesic) 1 patch TD Q72H [facility] Last Admin: 06/04/18 17:08 Dose: 1 patch Fluticasone/Vilanterol (Breo Ellipta 200-25 Mcg Inh) 1 puff INH RQD [facility] Last Admin: 06/05/18 08:23 Dose: Not Given Hydromorphone HCl (Dilaudid) 2 mg IVP Q4H PRN PRN Reason: Pain, severe (8-10) Last Admin: 06/04/18 04:04 Dose: 2 mg Cefepime HCl 2 gm/ Dextrose 100 mls @ 100 mls/hr IVPB Q12H [facility]; Protocol Last Admin: 06/05/18 11:39 Dose: 100 mls/hr Vancomycin/Sodium Chloride (Vancomycin 1 Gm/Ns 200 Ml) 1 gm in 200 mls @ 133.333 mls/hr IVPB Q12H [facility]; Protocol Last Admin: 06/05/18 07:57 Dose: 133.333 mls/hr Magnesium Hydroxide (Milk Of Magnesia) 30 ml PO DAILY PRN PRN Reason: Constipation Results - Vital Signs Recent Vital Signs: Last Vital Signs Temp 98.9 F 06/05/18 16:00 Pulse 116 H 06/05/18 16:00 Resp 20 06/05/18 16:00 BP 92/59 L 06/05/18 16:00 Pulse Ox 97 06/05/18 16:00 - Labs Result Diagrams: 06/04/18 07:51 06/04/18 07:51
--- NOTE | 2018-06-05 19:33 | CP.PCM.PN ---
Subjective - Date & Time of Evaluation Date of Evaluation: 06/05/18 Time of Evaluation: 19:33 Objective - Vital Signs/Intake and Output Vital Signs (last 24 hours): Temp Pulse Resp BP Pulse Ox 98.9 F 116 H 20 92/59 L 97 06/05/18 16:00 06/05/18 16:00 06/05/18 16:00 06/05/18 16:00 06/05/18 16:00 - Medications Medications: Current Medications Acetaminophen (Tylenol 325mg Tab) 650 mg PO Q6 PRN PRN Reason: Fever >100.4 F Last Admin: 06/05/18 00:00 Dose: 650 mg Albuterol/Ipratropium (Duoneb 3 Mg/0.5 Mg (3 Ml) Ud) 3 ml INH RQ6 [facility] Last Admin: 06/05/18 13:39 Dose: 3 ml Enoxaparin Sodium (Lovenox) 40 mg SC DAILY [facility] Last Admin: 06/05/18 11:36 Dose: 40 mg Fentanyl (Duragesic) 1 patch TD Q72H [facility] Last Admin: 06/04/18 17:08 Dose: 1 patch Fluticasone/Vilanterol (Breo Ellipta 200-25 Mcg Inh) 1 puff INH RQD [facility] Last Admin: 06/05/18 08:23 Dose: Not Given Hydromorphone HCl (Dilaudid) 2 mg IVP Q4H PRN PRN Reason: Pain, severe (8-10) Last Admin: 06/04/18 04:04 Dose: 2 mg Cefepime HCl 2 gm/ Dextrose 100 mls @ 100 mls/hr IVPB Q12H [facility]; Protocol Last Admin: 06/05/18 11:39 Dose: 100 mls/hr Vancomycin/Sodium Chloride (Vancomycin 1 Gm/Ns 200 Ml) 1 gm in 200 mls @ 133.333 mls/hr IVPB Q12H [facility]; Protocol Last Admin: 06/05/18 07:57 Dose: 133.333 mls/hr Magnesium Hydroxide (Milk Of Magnesia) 30 ml PO DAILY PRN PRN Reason: Constipation - Labs Labs: 06/04/18 07:51 06/04/18 07:51 Assessment and Plan (1) Chronic pain due to neoplasm Status: Acute (2) Unable to ambulate Status: Acute (3) Metastatic lung cancer (metastasis from lung to other site) Status: Acute (4) Metastatic cancer to lung Status: Acute (5) History of pneumonectomy Status: Acute
[2018-06-05] MEDS ORDERED: Sodium Chloride 0.9% 1,000 ML IV SCH (20:30)
[2018-06-05] MEDS: Lidocaine 5% Patch TD SCH (20:30)
[2018-06-05] MEDS: HYDROmorphone 1 mg/ml ISec IVP PRN (21:27)
[2018-06-06] MEDS: HYDROmorphone 1 mg/ml ISec IVP PRN (03:50)
--- NOTE | 2018-06-06 07:01 | CON ---
DATE: 06/05/2018 INFECTIOUS DISEASE CONSULT REQUESTED BY: Dayron Zambrano MD HISTORY OF PRESENT ILLNESS: This patient is a 57-year-old female. She has history of lung cancer with mets to the bone. She came in with the left hip pain and left thigh pain, and she is having fevers. Hence, I am asked to evaluate her. She has been having pain so bad. 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 She shows me the area where she is getting left hip radiation. She says she is done with the radiation at this time. She is denying any cough. No fever. No chills. No chest pain. No vomiting. No diarrhea. She has no Port-A-Cath, and she has a peripheral IV at this time. REVIEW OF SYSTEMS: She denies any headache. Denies any ear, nose, or throat problems. Denies any difficulty swallowing. No chest pain. No shortness of breath. No nausea, no vomiting at this time. Does complain of some diarrhea, and she had two BMs today. Yesterday, she has had 5 or 6 and loose BM. She saying no nausea and denies abdominal pain, and does have pain in the left hip and has difficulty ambulating, and no skin lesions present. PAST MEDICAL HISTORY: She has a past medical history shows former smoker, history of pacemaker, history of asthma, bronchitis, COPD, and NO ALLERGIES. He does have some anxiety issues. She has bone pains, and she has mets. Blood transfusion is not now. She has history of COPD, asthma, and bronchitis. She has no pacemaker. She is a former smoker. ALLERGIES: I FIND SHE IS NOT ALLERGIC TO ANY MEDICINE. MEDICATIONS: She is on Tylenol. She is on DuoNeb and cefepime 2 g every 12 which was started yesterday, on Lovenox, fentanyl patch. Fluticasone was not given. She is on hydromorphone, magnesium which is active. We will hold it, but the nurse said she got it today and then the vancomycin she is on 1 g every 12 hours at this time. SURGICAL HISTORY: Whole lung removed, right side surgery, and she is still tested positive for metastatic cancer of the lung, PHYSICAL EXAMINATION: VITAL SIGNS: I find her temperature was 99.9 today. Yesterday, she had 101.8, 101.7, heart rate of 116, blood pressure is 92/59, respirations are 20. Saturation 97%. HEENT: Head is atraumatic and normocephalic. Pupils are reacting to light. No icterus present. Tongue is moist. No thrush noted. NECK: Supple. JVP is flat. Trachea is central. No lymphadenopathy present. LUNGS: There are decreased breath sounds bilaterally. No crackles or rales heard. HEART: S1, S2 are regular. No murmurs appreciated. ABDOMEN: Soft, flabby, nontender. No guarding, no rigidity present. HIPS: Left hip, she has difficulty mobilizing, but externally, has no redness or swelling or any other issues. EXTREMITIES: Otherwise unremarkable. LABORATORY DATA: Labs are noted. White count is 3.5 yesterday, hemoglobin 11.5, hematocrit 34.9, platelet count is 257. Chlorides are 97, CO2 is 34, creatinine 0.5. Alk phos is 128. Chest x-ray was done. Chest x-ray shows complete opacification of right hemithorax which may be related to large pleural effusion, complete lung atelectasis, a prior pneumonectomy, given presence of sternal wire, and right paramediastinal surgical clip, correlation with surgical history is recommended. Alternatively, CT of chest may be obtained. I think the right side was removed, and the left side, left dimension. Left shows complete opacification . No left pleural effusion. No pneumothorax. There is nothing much going on in the lungs at this time. Etiology of fever remains unclear. Blood culture x2 were done on 06/04/2018 which are negative so far. We will get a urine culture, and we have ordered stool studies, and we will follow. We will continue present treatment for now, and hopefully, we will find out why she is having fever. She is immunosuppressed with metastatic lung disease. Saumya Rosenbaum MD [facility] # [phone]
[2018-06-06 07:20] LABS: SQUAMOUS EPITHIAL 2 /hpf (0-5); URINE BACTERIA RARE (<OCC); URINE BILIRUBIN NEGATIVE (NEGATIVE); URINE BLOOD 1+ (NEGATIVE); URINE CLARITY Hazy (Clear); URINE COLOR Yellow (YELLOW); URINE GLUCOSE (UA) NORMAL (Normal); URINE LEUKOCYTE ESTERASE NEG Leu/uL (Negative); URINE PROTEIN NEGATIVE (NEGATIVE); URINE UROBILINOGEN NORMAL mg/dL (0.2-1.0)
[2018-06-06] MEDS: Fluticasone-Vilanterol 200/25mcg Diskus INH SCH (07:40)
[2018-06-06 08:07] LABS: BASO % 0.5 % (0.0-2.0); EOS % 0.2 % (0.0-4.0); HEMOGLOBIN 10.1 g/dL (11.0-16.0); LYMPH # 0.4 K/uL (1.0-4.3); LYMPH % 16.4 % (20.0-40.0); MEAN CELL VOLUME 88.4 fL (81.0-99.0); MEAN CORPUSCULAR HEMOGLOBIN 28.5 pg (27.0-31.0); MEAN CORPUSCULAR HGB CONC 32.3 g/dL (33.0-37.0); MEAN PLATELET VOLUME 8.3 fL (7.2-11.7); MONO # 0.5 K/uL (0.0-0.8); MONO % 19.9 % (0.0-10.0); NEUT # 1.5 K/uL (1.8-7.0); RBC 3.53 Mil/uL (3.80-5.20); RED CELL DISTRIBUTION WIDTH 15.8 % (11.5-14.5)
[2018-06-06 08:17] LABS: ALB/GLOB RATIO 1.1 (1.0-2.1); ALBUMIN 3.1 g/dL (3.5-5.0); ALT/SGPT 37 U/L (9-52); AST/SGOT 28 U/L (14-36); BLOOD UREA NITROGEN 11 mg/dL (7-17); CALCIUM 8.1 mg/dl (8.6-10.4); GFR NON-AFRICAN AMERICAN > 60
[2018-06-06 08:18] LABS: WHITE BLOOD COUNT 2.4 K/uL (4.8-10.8)
[2018-06-06] MEDS: Vancomycin 1 gm/NS 200 ml 1 GM/200 ML BAG IVPB SCH ×2 (08:40→20:04)
[2018-06-06] MEDS: Cefepime 2 GM in Dextrose 5% In Water 100 ML IVPB SCH ×2 (08:41→20:03)
[2018-06-06] MEDS: Enoxaparin 40 mg Syringe SC SCH (09:22)
[2018-06-06] MEDS: Lidocaine 5% Patch TD SCH (10:54)
--- NOTE | 2018-06-06 14:11 | CP.PCM.PN ---
Subjective - Date & Time of Evaluation Date of Evaluation: 06/06/18 Time of Evaluation: 07:45 - Subjective Subjective: clinically same Objective - Vital Signs/Intake and Output Vital Signs (last 24 hours): Temp Pulse Resp BP Pulse Ox 98.2 F 110 H 96 H 96/62 L 20 L 06/06/18 08:00 06/06/18 08:00 06/06/18 08:00 06/06/18 08:00 06/06/18 08:00 Intake and Output: 06/06/18 06/06/18 06:59 18:59 Intake Total 2020 Output Total 1150 Balance 870 - Medications Medications: Current Medications Acetaminophen (Tylenol 325mg Tab) 650 mg PO Q6 PRN PRN Reason: Fever >100.4 F Last Admin: 06/05/18 19:40 Dose: 650 mg Enoxaparin Sodium (Lovenox) 40 mg SC DAILY [facility] Last Admin: 06/06/18 09:22 Dose: 40 mg Fentanyl (Duragesic) 1 patch TD Q72H [facility] Last Admin: 06/04/18 17:08 Dose: 1 patch Fluticasone/Vilanterol (Breo Ellipta 200-25 Mcg Inh) 1 puff INH RQD [facility] Last Admin: 06/06/18 07:40 Dose: Not Given Hydromorphone HCl (Dilaudid) 2 mg IVP Q4H PRN PRN Reason: pain Last Admin: 06/06/18 09:18 Dose: 2 mg Cefepime HCl 2 gm/ Dextrose 100 mls @ 100 mls/hr IVPB Q12H [facility]; Protocol Last Admin: 06/06/18 08:41 Dose: 100 mls/hr Vancomycin/Sodium Chloride (Vancomycin 1 Gm/Ns 200 Ml) 1 gm in 200 mls @ 133.333 mls/hr IVPB Q12H [facility]; Protocol Last Admin: 06/06/18 08:40 Dose: 133.333 mls/hr Sodium Chloride (Sodium Chloride 0.9%) 1,000 mls @ 75 mls/hr IV .[id number] [facility] Stop: 06/06/18 20:30 Last Admin: 06/05/18 20:31 Dose: 75 mls/hr Lidocaine (Lidoderm) 1 ea TD DAILY [facility] Last Admin: 06/06/18 10:54 Dose: 1 ea Magnesium Hydroxide (Milk Of Magnesia) 30 ml PO DAILY PRN PRN Reason: Constipation - Labs Labs: 06/06/18 07:46 06/06/18 07:44 - Constitutional Appears: Well - Head Exam Head Exam: ATRAUMATIC, NORMAL INSPECTION, NORMOCEPHALIC - Eye Exam Eye Exam: EOMI, Normal appearance, PERRL Pupil Exam: NORMAL ACCOMODATION, PERRL - ENT Exam ENT Exam: Mucous Membranes Moist, Normal Exam - Neck Exam Neck Exam: Full ROM, Normal Inspection. absent: Lymphadenopathy - Respiratory Exam Respiratory Exam: Decreased Breath Sounds - Cardiovascular Exam Cardiovascular Exam: REGULAR RHYTHM, +S1, +S2 - GI/Abdominal Exam GI & Abdominal Exam: Soft, Diminished Bowel Sounds - Rectal Exam Rectal Exam: Deferred Assessment and Plan (1) Chronic pain due to neoplasm Status: Acute (2) History of pneumonectomy Status: Acute (3) Metastatic cancer to lung Status: Acute (4) Metastatic lung cancer (metastasis from lung to other site) Status: Acute (5) Unable to ambulate Status: Acute
[2018-06-06] MEDS ORDERED: Aritificial Tears (15ml) OU PRN (16:00)
[2018-06-06] MEDS: Aritificial Tears (15ml) OU PRN (17:37)
--- NOTE | 2018-06-06 21:50 | CP.PCM.PN ---
Subjective - Date & Time of Evaluation Date of Evaluation: 06/06/18 Time of Evaluation: 18:30 - Subjective Subjective: dictated Objective - Vital Signs/Intake and Output Vital Signs (last 24 hours): Temp Pulse Resp BP Pulse Ox 98.7 F 114 H 20 100/63 95 06/06/18 16:00 06/06/18 16:00 06/06/18 16:00 06/06/18 16:00 06/06/18 16:00 Intake and Output: 06/06/18 06/07/18 18:59 06:59 Intake Total 840 Output Total 650 Balance 190 - Medications Medications: Current Medications Acetaminophen (Tylenol 325mg Tab) 650 mg PO Q6 PRN PRN Reason: Fever >100.4 F Last Admin: 06/05/18 19:40 Dose: 650 mg Artificial Tears (Artificial Tears) 0.1 ml OU Q4H PRN PRN Reason: dry eyes Last Admin: 06/06/18 17:37 Dose: 1 drop Enoxaparin Sodium (Lovenox) 40 mg SC DAILY [facility] Last Admin: 06/06/18 09:22 Dose: 40 mg Fentanyl (Duragesic) 1 patch TD Q72H [facility] Last Admin: 06/04/18 17:08 Dose: 1 patch Fluticasone/Vilanterol (Breo Ellipta 200-25 Mcg Inh) 1 puff INH RQD [facility] Last Admin: 06/06/18 07:40 Dose: Not Given Hydromorphone HCl (Dilaudid) 2 mg IVP Q4H PRN PRN Reason: pain Last Admin: 06/06/18 18:45 Dose: 2 mg Cefepime HCl 2 gm/ Dextrose 100 mls @ 100 mls/hr IVPB Q12H [facility]; Protocol Last Admin: 06/06/18 20:03 Dose: 100 mls/hr Vancomycin/Sodium Chloride (Vancomycin 1 Gm/Ns 200 Ml) 1 gm in 200 mls @ 133.333 mls/hr IVPB Q12H [facility]; Protocol Last Admin: 06/06/18 20:04 Dose: 133.333 mls/hr Lidocaine (Lidoderm) 1 ea TD DAILY [facility] Last Admin: 06/06/18 10:54 Dose: 1 ea Magnesium Hydroxide (Milk Of Magnesia) 30 ml PO DAILY PRN PRN Reason: Constipation - Labs Labs: 06/06/18 07:46 06/06/18 07:44
--- NOTE | 2018-06-07 02:52 | PN ---
DATE: 06/06/2018 SUBJECTIVE: The patient was seen today. Yesterday, her temp was 101.8, and today, temperature is better. She says she is coughing up green stuff. T-max is 98.7. She denies any diarrhea. She did receive milk of magnesia yesterday which was stopped. PHYSICAL EXAMINATION: VITAL SIGNS: Heart rate is 114, blood pressure 100/63, respirations are 20, and saturation is 95%. GENERAL: The patient is awake, alert, able to communicate. HEENT: Head is atraumatic, normocephalic. NECK: Supple. LUNGS: Have decreased breath sounds bilaterally. HEART: S1, S2 are tachycardic. ABDOMEN: Soft, nontender. No guarding, no rigidity present. EXTREMITIES: Have no edema. She still has pain in the left hip. LABORATORY DATA: Her white count is 2.4 today, hemoglobin 10.1, hematocrit 31.2, platelet count is 242, neutrophils are 63, lymphs are 16.4, so she is neutropenic, but differential is normal. BUN is 11, creatinine 0.5. UA is also unremarkable and septic workup. Blood cultures were negative. Urine culture was ordered late. IMPRESSION: The patient has metastatic disease with febrile, history of malignant lung cancer and status post radiation. PLAN: The patient came in with fevers and has left hip joint metastatic disease, unable to ambulate. We will renew Maxipime as it , and we will follow. I had ordered urinalysis and urine culture, but they have not collected it, so it remains. Etiology of her fever is unclear. It could be the lungs. She may have post-obstructive pneumonia. She has had pneumonectomy, but she says she is bringing out green stuff, and I still saw the sputum cup sitting on her table. I am lacking a sputum culture and urine culture to decide further. We will continue present treatment at this time. Saumya Rosenbaum MD
[2018-06-07] MEDS: Fluticasone-Vilanterol 200/25mcg Diskus INH SCH (07:45)
[2018-06-07 08:22] VITALS: RESP 20
[2018-06-07] MEDS: Vancomycin 1 gm/NS 200 ml 1 GM/200 ML BAG IVPB SCH ×2 (08:22→20:00)
[2018-06-07] MEDS: Cefepime 2 GM in Dextrose 5% In Water 100 ML IVPB SCH ×2 (08:24→21:44)
[2018-06-07] MEDS: Aritificial Tears (15ml) OU PRN (08:24)
[2018-06-07] MEDS: Enoxaparin 40 mg Syringe SC SCH (10:31)
[2018-06-07] MEDS: Lidocaine 5% Patch TD SCH (10:31)
--- NOTE | 2018-06-07 15:44 | CP.PCM.PN ---
Subjective - Date & Time of Evaluation Date of Evaluation: 06/07/18 Time of Evaluation: 07:45 - Subjective Subjective: clinically same Objective - Vital Signs/Intake and Output Vital Signs (last 24 hours): Temp Pulse Resp BP Pulse Ox 99.6 F 111 H 20 91/61 L 95 06/07/18 08:21 06/07/18 08:21 06/07/18 08:21 06/07/18 08:21 06/07/18 08:21 Intake and Output: 06/07/18 06/07/18 06:59 18:59 Intake Total 740 Balance 740 - Medications Medications: Current Medications Acetaminophen (Tylenol 325mg Tab) 650 mg PO Q6 PRN PRN Reason: Fever >100.4 F Last Admin: 06/05/18 19:40 Dose: 650 mg Artificial Tears (Artificial Tears) 0.1 ml OU Q4H PRN PRN Reason: dry eyes Last Admin: 06/07/18 08:24 Dose: 2 drop Enoxaparin Sodium (Lovenox) 40 mg SC DAILY [facility] Last Admin: 06/07/18 10:31 Dose: 40 mg Fentanyl (Duragesic) 1 patch TD Q72H [facility] Last Admin: 06/04/18 17:08 Dose: 1 patch Fluticasone/Vilanterol (Breo Ellipta 200-25 Mcg Inh) 1 puff INH RQD [facility] Last Admin: 06/07/18 07:45 Dose: Not Given Hydromorphone HCl (Dilaudid) 2 mg IVP Q4H PRN PRN Reason: pain Last Admin: 06/07/18 15:25 Dose: 2 mg Cefepime HCl 2 gm/ Dextrose 100 mls @ 100 mls/hr IVPB Q12H [facility]; Protocol Last Admin: 06/07/18 08:24 Dose: 100 mls/hr Vancomycin/Sodium Chloride (Vancomycin 1 Gm/Ns 200 Ml) 1 gm in 200 mls @ 133.333 mls/hr IVPB Q12H [facility]; Protocol Last Admin: 06/07/18 08:22 Dose: 133.333 mls/hr Lidocaine (Lidoderm) 1 ea TD DAILY [facility] Last Admin: 06/07/18 10:31 Dose: 1 ea Magnesium Hydroxide (Milk Of Magnesia) 30 ml PO DAILY PRN PRN Reason: Constipation - Labs Labs: 06/06/18 07:46 06/06/18 07:44 - Constitutional Appears: Well - Head Exam Head Exam: ATRAUMATIC, NORMAL INSPECTION, NORMOCEPHALIC - Eye Exam Eye Exam: EOMI, Normal appearance, PERRL Pupil Exam: NORMAL ACCOMODATION, PERRL - ENT Exam ENT Exam: Mucous Membranes Moist, Normal Exam - Neck Exam Neck Exam: Full ROM, Normal Inspection. absent: Lymphadenopathy - Respiratory Exam Respiratory Exam: Decreased Breath Sounds - Cardiovascular Exam Cardiovascular Exam: REGULAR RHYTHM, +S1, +S2 - GI/Abdominal Exam GI & Abdominal Exam: Soft, Diminished Bowel Sounds - Rectal Exam Rectal Exam: Deferred Assessment and Plan (1) Chronic pain due to neoplasm Status: Acute (2) History of pneumonectomy Status: Acute (3) Metastatic cancer to lung Status: Acute (4) Metastatic lung cancer (metastasis from lung to other site) Status: Acute (5) Unable to ambulate Status: Acute
--- NOTE | 2018-06-07 18:30 | CP.PCM.PN ---
Subjective - Date & Time of Evaluation Date of Evaluation: 06/07/18 Time of Evaluation: 18:30 Objective - Vital Signs/Intake and Output Vital Signs (last 24 hours): Temp Pulse Resp BP Pulse Ox 98 F 101 H 20 115/73 94 L 06/07/18 16:00 06/07/18 16:00 06/07/18 16:00 06/07/18 16:00 06/07/18 16:00 Intake and Output: 06/07/18 06/07/18 06:59 18:59 Intake Total 740 Balance 740 - Medications Medications: Current Medications Acetaminophen (Tylenol 325mg Tab) 650 mg PO Q6 PRN PRN Reason: Fever >100.4 F Last Admin: 06/05/18 19:40 Dose: 650 mg Artificial Tears (Artificial Tears) 0.1 ml OU Q4H PRN PRN Reason: dry eyes Last Admin: 06/07/18 08:24 Dose: 2 drop Enoxaparin Sodium (Lovenox) 40 mg SC DAILY [facility] Last Admin: 06/07/18 10:31 Dose: 40 mg Fentanyl (Duragesic) 1 patch TD Q72H [facility] Last Admin: 06/07/18 17:22 Dose: 1 patch Fluticasone/Vilanterol (Breo Ellipta 200-25 Mcg Inh) 1 puff INH RQD [facility] Last Admin: 06/07/18 07:45 Dose: Not Given Hydromorphone HCl (Dilaudid) 2 mg IVP Q4H PRN PRN Reason: pain Last Admin: 06/07/18 15:25 Dose: 2 mg Cefepime HCl 2 gm/ Dextrose 100 mls @ 100 mls/hr IVPB Q12H [facility]; Protocol Last Admin: 06/07/18 08:24 Dose: 100 mls/hr Vancomycin/Sodium Chloride (Vancomycin 1 Gm/Ns 200 Ml) 1 gm in 200 mls @ 133.333 mls/hr IVPB Q12H [facility]; Protocol Last Admin: 06/07/18 08:22 Dose: 133.333 mls/hr Lidocaine (Lidoderm) 1 ea TD DAILY [facility] Last Admin: 06/07/18 10:31 Dose: 1 ea Magnesium Hydroxide (Milk Of Magnesia) 30 ml PO DAILY PRN PRN Reason: Constipation - Labs Labs: 06/06/18 07:46 06/06/18 07:44 Assessment and Plan (1) Chronic pain due to neoplasm Status: Acute (2) Unable to ambulate Status: Acute (3) Metastatic lung cancer (metastasis from lung to other site) Status: Acute (4) Metastatic cancer to lung Status: Acute (5) History of pneumonectomy Status: Acute
--- NOTE | 2018-06-07 22:02 | CP.PCM.PN ---
Subjective - Date & Time of Evaluation Date of Evaluation: 06/07/18 Time of Evaluation: 18:00 - Subjective Subjective: dictated Objective - Vital Signs/Intake and Output Vital Signs (last 24 hours): Temp Pulse Resp BP Pulse Ox 98 F 101 H 20 115/73 94 L 06/07/18 16:00 06/07/18 16:00 06/07/18 16:00 06/07/18 16:00 06/07/18 16:00 - Medications Medications: Current Medications Acetaminophen (Tylenol 325mg Tab) 650 mg PO Q6 PRN PRN Reason: Fever >100.4 F Last Admin: 06/05/18 19:40 Dose: 650 mg Artificial Tears (Artificial Tears) 0.1 ml OU Q4H PRN PRN Reason: dry eyes Last Admin: 06/07/18 08:24 Dose: 2 drop Enoxaparin Sodium (Lovenox) 40 mg SC DAILY [facility] Last Admin: 06/07/18 10:31 Dose: 40 mg Fentanyl (Duragesic) 1 patch TD Q72H [facility] Last Admin: 06/07/18 17:22 Dose: 1 patch Fluticasone/Vilanterol (Breo Ellipta 200-25 Mcg Inh) 1 puff INH RQD [facility] Last Admin: 06/07/18 07:45 Dose: Not Given Hydromorphone HCl (Dilaudid) 2 mg IVP Q4H PRN PRN Reason: pain Last Admin: 06/07/18 15:25 Dose: 2 mg Cefepime HCl 2 gm/ Dextrose 100 mls @ 100 mls/hr IVPB Q12H [facility]; Protocol Last Admin: 06/07/18 21:44 Dose: 100 mls/hr Vancomycin/Sodium Chloride (Vancomycin 1 Gm/Ns 200 Ml) 1 gm in 200 mls @ 133.333 mls/hr IVPB Q12H [facility]; Protocol Last Admin: 06/07/18 20:00 Dose: 133.333 mls/hr Lidocaine (Lidoderm) 1 ea TD DAILY [facility] Last Admin: 06/07/18 10:31 Dose: 1 ea Magnesium Hydroxide (Milk Of Magnesia) 30 ml PO DAILY PRN PRN Reason: Constipation - Labs Labs: 06/06/18 07:46 06/06/18 07:44
--- NOTE | 2018-06-08 03:20 | PN ---
DATE: 06/07/2018 SUBJECTIVE: The patient was having lot of left hip pain. She has been on Duragesic patch. She says she is coughing but she is not bringing out much phlegm. She denies any other illness. She is now constipated rather than diarrhea. She has no nausea. PHYSICAL EXAMINATION: VITAL SIGNS: Temperature is 98, heart rate of 101, blood pressure 115/73, respirations are 20, saturations 94%. HEENT: Head is atraumatic, normocephalic. NECK: Supple. LUNGS: Clear. She has had surgery on one side because of the cancer. HEART: S1, S2. Regular. ABDOMEN: Soft, nontender. No guarding, no rigidity present. EXTREMITIES: No edema. 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 She has history of pneumonectomy also. At this time, I have left her on antibiotics, but she has not given any culture. Blood cultures and urine culture are all negative. She did have fevers when she came in; however, she is afebrile at this time. She has been on antibiotics since 06/01/2018. She is completing 7 days of treatment at this time. I would discontinue the antibiotics tomorrow if agreeable with Pulmonary. She is to continue other respiratory treatments and pain management, and she can probably go to rehab. Will follow up with the [facility]. Saumya Rosenbaum MD
[2018-06-08] MEDS: Fluticasone-Vilanterol 200/25mcg Diskus INH SCH (07:35)
[2018-06-08] MEDS: Vancomycin 1 gm/NS 200 ml 1 GM/200 ML BAG IVPB SCH (07:41)
[2018-06-08] MEDS: Cefepime 2 GM in Dextrose 5% In Water 100 ML IVPB SCH (08:30)
[2018-06-08] MEDS: Enoxaparin 40 mg Syringe SC SCH (09:11)
[2018-06-08] MEDS: Lidocaine 5% Patch TD SCH (09:11)
[2018-06-08] MEDS: Aritificial Tears (15ml) OU PRN (09:26)
--- NOTE | 2018-06-08 14:16 | CP.PCM.PN ---
Subjective - Date & Time of Evaluation Date of Evaluation: 06/08/18 Time of Evaluation: 07:45 - Subjective Subjective: clinically same Objective - Vital Signs/Intake and Output Vital Signs (last 24 hours): Temp Pulse Resp BP Pulse Ox 98.1 F 114 H 20 100/65 95 06/08/18 09:05 06/08/18 09:05 06/08/18 09:05 06/08/18 09:05 06/08/18 09:05 Intake and Output: 06/08/18 06/08/18 06:59 18:59 Intake Total 600 300 Balance 600 300 - Medications Medications: Current Medications Acetaminophen (Tylenol 325mg Tab) 650 mg PO Q6 PRN PRN Reason: Fever >100.4 F Last Admin: 06/05/18 19:40 Dose: 650 mg Artificial Tears (Artificial Tears) 0.1 ml OU Q4H PRN PRN Reason: dry eyes Last Admin: 06/08/18 09:26 Dose: 2 drop Fentanyl (Duragesic) 1 patch TD Q72H [facility] Last Admin: 06/07/18 17:22 Dose: 1 patch Fluticasone/Vilanterol (Breo Ellipta 200-25 Mcg Inh) 1 puff INH RQD [facility] Last Admin: 06/08/18 07:35 Dose: Not Given Hydromorphone HCl (Dilaudid) 2 mg IVP Q4H PRN PRN Reason: pain Last Admin: 06/08/18 07:25 Dose: 2 mg Cefepime HCl 2 gm/ Dextrose 100 mls @ 100 mls/hr IVPB Q12H [facility]; Protocol Last Admin: 06/08/18 08:30 Dose: 100 mls/hr Vancomycin/Sodium Chloride (Vancomycin 1 Gm/Ns 200 Ml) 1 gm in 200 mls @ 133.333 mls/hr IVPB Q12H [facility]; Protocol Last Admin: 06/08/18 07:41 Dose: 133.333 mls/hr Lidocaine (Lidoderm) 1 ea TD DAILY [facility] Last Admin: 06/08/18 09:11 Dose: 1 ea Magnesium Hydroxide (Milk Of Magnesia) 30 ml PO DAILY PRN PRN Reason: Constipation - Labs Labs: 06/06/18 07:46 06/06/18 07:44 - Constitutional Appears: Well - Head Exam Head Exam: ATRAUMATIC, NORMAL INSPECTION, NORMOCEPHALIC - Eye Exam Eye Exam: EOMI, Normal appearance, PERRL Pupil Exam: NORMAL ACCOMODATION, PERRL - ENT Exam ENT Exam: Mucous Membranes Moist, Normal Exam - Neck Exam Neck Exam: Full ROM, Normal Inspection. absent: Lymphadenopathy - Respiratory Exam Respiratory Exam: Decreased Breath Sounds - Cardiovascular Exam Cardiovascular Exam: REGULAR RHYTHM, +S1, +S2 - GI/Abdominal Exam GI & Abdominal Exam: Soft, Diminished Bowel Sounds - Rectal Exam Rectal Exam: Deferred Assessment and Plan (1) Chronic pain due to neoplasm Status: Acute (2) History of pneumonectomy Status: Acute (3) Metastatic cancer to lung Status: Acute (4) Metastatic lung cancer (metastasis from lung to other site) Status: Acute (5) Unable to ambulate Status: Acute
[2018-06-08 14:17] LABS: SQUAMOUS EPITHIAL 4 /hpf (0-5); URINE BILIRUBIN NEGATIVE (NEGATIVE); URINE BLOOD NEGATIVE (NEGATIVE); URINE CLARITY Hazy (Clear); URINE COLOR Yellow (YELLOW); URINE GLUCOSE (UA) NORMAL (Normal); URINE LEUKOCYTE ESTERASE TRACE Leu/uL (Negative); URINE PROTEIN 1+ mg/dL (NEGATIVE); URINE UROBILINOGEN NORMAL mg/dL (0.2-1.0)
--- NOTE | 2018-06-08 16:32 | CP.PCM.PN ---
Subjective - Date & Time of Evaluation Date of Evaluation: 06/08/18 Time of Evaluation: 16:32 Objective - Vital Signs/Intake and Output Vital Signs (last 24 hours): Temp Pulse Resp BP Pulse Ox 98.5 F 111 H 20 106/71 96 06/08/18 15:00 06/08/18 15:00 06/08/18 15:00 06/08/18 15:00 06/08/18 15:00 Intake and Output: 06/08/18 06/08/18 06:59 18:59 Intake Total 600 300 Balance 600 300 - Medications Medications: Current Medications Acetaminophen (Tylenol 325mg Tab) 650 mg PO Q6 PRN PRN Reason: Fever >100.4 F Last Admin: 06/05/18 19:40 Dose: 650 mg Artificial Tears (Artificial Tears) 0.1 ml OU Q4H PRN PRN Reason: dry eyes Last Admin: 06/08/18 09:26 Dose: 2 drop Fentanyl (Duragesic) 1 patch TD Q72H [facility] Last Admin: 06/07/18 17:22 Dose: 1 patch Fluticasone/Vilanterol (Breo Ellipta 200-25 Mcg Inh) 1 puff INH RQD [facility] Last Admin: 06/08/18 07:35 Dose: Not Given Hydromorphone HCl (Dilaudid) 2 mg IVP Q4H PRN PRN Reason: pain Last Admin: 06/08/18 07:25 Dose: 2 mg Cefepime HCl 2 gm/ Dextrose 100 mls @ 100 mls/hr IVPB Q12H [facility]; Protocol Last Admin: 06/08/18 08:30 Dose: 100 mls/hr Vancomycin/Sodium Chloride (Vancomycin 1 Gm/Ns 200 Ml) 1 gm in 200 mls @ 133.333 mls/hr IVPB Q12H [facility]; Protocol Last Admin: 06/08/18 07:41 Dose: 133.333 mls/hr Lidocaine (Lidoderm) 1 ea TD DAILY [facility] Last Admin: 06/08/18 09:11 Dose: 1 ea Magnesium Hydroxide (Milk Of Magnesia) 30 ml PO DAILY PRN PRN Reason: Constipation - Labs Labs: 06/06/18 07:46 06/06/18 07:44 Assessment and Plan (1) Chronic pain due to neoplasm Status: Acute (2) Unable to ambulate Status: Acute (3) Metastatic lung cancer (metastasis from lung to other site) Status: Acute (4) Metastatic cancer to lung Status: Acute (5) History of pneumonectomy Status: Acute
--- NOTE | 2018-06-08 21:52 | CP.PCM.PN ---
Subjective - Date & Time of Evaluation Date of Evaluation: 06/08/18 Time of Evaluation: 15:00 - Subjective Subjective: dictated Objective - Vital Signs/Intake and Output Vital Signs (last 24 hours): Temp Pulse Resp BP Pulse Ox 98.5 F 111 H 20 106/71 96 06/08/18 15:00 06/08/18 15:00 06/08/18 15:00 06/08/18 15:00 06/08/18 15:00 Intake and Output: 06/08/18 06/09/18 18:59 06:59 Intake Total 300 Balance 300 - Medications Medications: Current Medications Acetaminophen (Tylenol 325mg Tab) 650 mg PO Q6 PRN PRN Reason: Fever >100.4 F Last Admin: 06/05/18 19:40 Dose: 650 mg Artificial Tears (Artificial Tears) 0.1 ml OU Q4H PRN PRN Reason: dry eyes Last Admin: 06/08/18 09:26 Dose: 2 drop Fentanyl (Duragesic) 1 patch TD Q72H [facility] Last Admin: 06/07/18 17:22 Dose: 1 patch Fluticasone/Vilanterol (Breo Ellipta 200-25 Mcg Inh) 1 puff INH RQD [facility] Last Admin: 06/08/18 07:35 Dose: Not Given Hydromorphone HCl (Dilaudid) 2 mg IVP Q4H PRN PRN Reason: pain Last Admin: 06/08/18 16:25 Dose: 2 mg Lidocaine (Lidoderm) 1 ea TD DAILY [facility] Last Admin: 06/08/18 09:11 Dose: 1 ea Magnesium Hydroxide (Milk Of Magnesia) 30 ml PO DAILY PRN PRN Reason: Constipation - Labs Labs: 06/06/18 07:46 06/06/18 07:44
--- NOTE | 2018-06-09 01:54 | PN ---
DATE: 06/08/2018 SUBJECTIVE: The patient is still coughing a lot. She is with left hip pain, and she needs some medications to relieve. is at the bedside. The patient is to be continued on antibiotics for two more days, and then we will wean off. PHYSICAL EXAMINATION: VITAL SIGNS: T-max is 98.5, pulse 111, blood pressure 106/71, respirations are 20. HEENT: Head is atraumatic, normocephalic. NECK: Supple. LUNGS: Clear. Decreased breath sounds on right lung base because she had pneumonectomy. HEART: S1 and S2. Regular. ABDOMEN: Soft, nontender. No guarding. No rigidity present. EXTREMITIES: Has no edema. ASSESSMENT AND PLAN: They have discontinued cefepime at this time let see how she does without antibiotics. There is no chest x-ray after 06/08/2018, so I take that back. She received "seven days" of antibiotics. Let see how she does off it. She needs physical therapy for the left hip where she has metastatic disease. Saumya Rosenbaum MD
[2018-06-09] MEDS: Magnesium Hydroxide Susp 30 ml UD PO PRN (08:26)
[2018-06-09] MEDS: Fluticasone-Vilanterol 200/25mcg Diskus INH SCH (09:26)
[2018-06-09] MEDS: Lidocaine 5% Patch TD SCH (10:34)
--- NOTE | 2018-06-09 13:53 | RAD ---
HISTORY: r/o pneumonia COMPARISON: Chest x-ray performed 05/31/18 TECHNIQUE: Chest PA and lateral FINDINGS: LUNGS: Complete opacification of the right hemithorax. Left paramediastinal surgical clips. Subtle rounded opacities within the right medial mid lung zone measuring approximately 8 mm and 10 mm. Please note that chest x-ray has limited sensitivity for the detection of pulmonary masses. CARDIOVASCULAR: Obscured cardiac silhouette. Median sternotomy wires. OSSEOUS STRUCTURES: Degenerative changes. VISUALIZED UPPER ABDOMEN: Unremarkable. OTHER FINDINGS: None. IMPRESSION: Complete opacification of the right hemithorax. Median sternotomy wires. Right paramediastinal surgical clips. Subtle rounded opacities within the right medial mid lung zone measuring approximately 8 mm and 10 mm.
--- NOTE | 2018-06-09 14:28 | PN ---
DATE: 06/09/2018 ONCOLOGY EVALUATION Her is somewhat improved. She is afebrile. She is still bedridden. She is relatively with less pain on lying down, but she cannot even sit up. The pain in her sacrum is too strong. She is on 100 of Duragesic increased to 125, and we will wait and see what the fever does. In the meantime, we will increase the pain medications. She did not move her bowels for the last 2 days, so we will give milk of magnesia. Joel MD [place]
--- NOTE | 2018-06-09 16:10 | CP.PCM.PN ---
Subjective - Date & Time of Evaluation Date of Evaluation: 06/09/18 Time of Evaluation: 07:45 - Subjective Subjective: clinically same Objective - Vital Signs/Intake and Output Vital Signs (last 24 hours): Temp Pulse Resp BP Pulse Ox 99.2 F 116 H 20 96/68 L 95 06/09/18 08:36 06/09/18 08:36 06/09/18 08:36 06/09/18 08:36 06/09/18 08:36 Intake and Output: 06/09/18 06/09/18 06:59 18:59 Intake Total 300 Balance 300 - Medications Medications: Current Medications Acetaminophen (Tylenol 325mg Tab) 650 mg PO Q6 PRN PRN Reason: Fever >100.4 F Last Admin: 06/05/18 19:40 Dose: 650 mg Artificial Tears (Artificial Tears) 0.1 ml OU Q4H PRN PRN Reason: dry eyes Last Admin: 06/08/18 09:26 Dose: 2 drop Fentanyl (Duragesic) 1 patch TD Q72H [facility] Last Admin: 06/09/18 10:24 Dose: 1 patch Fentanyl (Duragesic) 1 patch TD Q72H [facility] Last Admin: 06/09/18 10:25 Dose: 1 patch Fluticasone/Vilanterol (Breo Ellipta 200-25 Mcg Inh) 1 puff INH RQD [facility] Last Admin: 06/09/18 09:26 Dose: Not Given Hydromorphone HCl (Dilaudid) 2 mg IVP Q4H PRN PRN Reason: pain Last Admin: 06/09/18 08:32 Dose: 2 mg Lidocaine (Lidoderm) 1 ea TD DAILY [facility] Last Admin: 06/09/18 10:34 Dose: 1 ea Magnesium Hydroxide (Milk Of Magnesia) 30 ml PO DAILY PRN PRN Reason: Constipation Last Admin: 06/09/18 08:26 Dose: 30 ml - Labs Labs: 06/06/18 07:46 06/06/18 07:44 - Constitutional Appears: Well - Head Exam Head Exam: ATRAUMATIC, NORMAL INSPECTION, NORMOCEPHALIC - Eye Exam Eye Exam: EOMI, Normal appearance, PERRL Pupil Exam: NORMAL ACCOMODATION, PERRL - ENT Exam ENT Exam: Mucous Membranes Moist, Normal Exam - Neck Exam Neck Exam: Full ROM, Normal Inspection. absent: Lymphadenopathy - Respiratory Exam Respiratory Exam: Decreased Breath Sounds - Cardiovascular Exam Cardiovascular Exam: REGULAR RHYTHM, +S1, +S2 - GI/Abdominal Exam GI & Abdominal Exam: Soft, Diminished Bowel Sounds - Rectal Exam Rectal Exam: Deferred Assessment and Plan (1) Chronic pain due to neoplasm Status: Acute (2) History of pneumonectomy Status: Acute (3) Metastatic cancer to lung Status: Acute (4) Metastatic lung cancer (metastasis from lung to other site) Status: Acute (5) Unable to ambulate Status: Acute
--- NOTE | 2018-06-09 18:37 | CP.PCM.PN ---
Subjective - Date & Time of Evaluation Date of Evaluation: 06/09/18 Time of Evaluation: 18:37 Objective - Vital Signs/Intake and Output Vital Signs (last 24 hours): Temp Pulse Resp BP Pulse Ox 98.2 F 129 H 20 111/54 L 96 06/09/18 16:00 06/09/18 16:00 06/09/18 16:00 06/09/18 16:00 06/09/18 16:00 Intake and Output: 06/09/18 06/09/18 06:59 18:59 Intake Total 300 Balance 300 - Medications Medications: Current Medications Acetaminophen (Tylenol 325mg Tab) 650 mg PO Q6 PRN PRN Reason: Fever >100.4 F Last Admin: 06/05/18 19:40 Dose: 650 mg Artificial Tears (Artificial Tears) 0.1 ml OU Q4H PRN PRN Reason: dry eyes Last Admin: 06/08/18 09:26 Dose: 2 drop Fentanyl (Duragesic) 1 patch TD Q72H [facility] Last Admin: 06/09/18 10:24 Dose: 1 patch Fentanyl (Duragesic) 1 patch TD Q72H [facility] Last Admin: 06/09/18 10:25 Dose: 1 patch Fluticasone/Vilanterol (Breo Ellipta 200-25 Mcg Inh) 1 puff INH RQD [facility] Last Admin: 06/09/18 09:26 Dose: Not Given Hydromorphone HCl (Dilaudid) 2 mg IVP Q4H PRN PRN Reason: pain Last Admin: 06/09/18 08:32 Dose: 2 mg Lidocaine (Lidoderm) 1 ea TD DAILY [facility] Last Admin: 06/09/18 10:34 Dose: 1 ea Magnesium Hydroxide (Milk Of Magnesia) 30 ml PO DAILY PRN PRN Reason: Constipation Last Admin: 06/09/18 08:26 Dose: 30 ml - Labs Labs: 06/06/18 07:46 06/06/18 07:44 Assessment and Plan (1) Chronic pain due to neoplasm Status: Acute (2) Unable to ambulate Status: Acute (3) Metastatic lung cancer (metastasis from lung to other site) Status: Acute (4) Metastatic cancer to lung Status: Acute (5) History of pneumonectomy Status: Acute
--- NOTE | 2018-06-09 21:50 | CP.PCM.PN ---
Subjective - Date & Time of Evaluation Date of Evaluation: 06/09/18 Time of Evaluation: 12:00 - Subjective Subjective: dictated Objective - Vital Signs/Intake and Output Vital Signs (last 24 hours): Temp Pulse Resp BP Pulse Ox 98.2 F 129 H 20 111/54 L 96 06/09/18 16:00 06/09/18 16:00 06/09/18 16:00 06/09/18 16:00 06/09/18 16:00 - Medications Medications: Current Medications Acetaminophen (Tylenol 325mg Tab) 650 mg PO Q6 PRN PRN Reason: Fever >100.4 F Last Admin: 06/05/18 19:40 Dose: 650 mg Artificial Tears (Artificial Tears) 0.1 ml OU Q4H PRN PRN Reason: dry eyes Last Admin: 06/08/18 09:26 Dose: 2 drop Fentanyl (Duragesic) 1 patch TD Q72H [facility] Last Admin: 06/09/18 10:24 Dose: 1 patch Fentanyl (Duragesic) 1 patch TD Q72H [facility] Last Admin: 06/09/18 10:25 Dose: 1 patch Fluticasone/Vilanterol (Breo Ellipta 200-25 Mcg Inh) 1 puff INH RQD [facility] Last Admin: 06/09/18 09:26 Dose: Not Given Hydromorphone HCl (Dilaudid) 2 mg IVP Q4H PRN PRN Reason: pain Last Admin: 06/09/18 18:41 Dose: 2 mg Lidocaine (Lidoderm) 1 ea TD DAILY [facility] Last Admin: 06/09/18 10:34 Dose: 1 ea Magnesium Hydroxide (Milk Of Magnesia) 30 ml PO DAILY PRN PRN Reason: Constipation Last Admin: 06/09/18 08:26 Dose: 30 ml - Labs Labs: 06/06/18 07:46 06/06/18 07:44
--- NOTE | 2018-06-10 01:16 | PN ---
DATE: 06/09/2018 SUBJECTIVE: The patient had a low-grade temp this morning. We did a chest x-ray. She is still having some cough and still with her left hip pain. Denies any diarrhea, is constipated. No urinary complaints and she is still with the cough. She did say she gave a sputum last night. PHYSICAL EXAMINATION: VITAL SIGNS: T-max is 98.2 right now, heart rate of 129, blood pressure 111/54, respirations are 20. She remains little tachycardic. HEENT: Head is atraumatic, normocephalic and she did cough. LUNGS: Clear. Coarse breath sounds on left lung; otherwise, right lung, she had pneumonectomy. ABDOMEN: Soft, nontender. No guarding, no rigidity present. EXTREMITIES: Have no edema, clubbing or cyanosis. LABORATORY DATA: Labs are noted. White count is 2.4 today, hemoglobin 10.1, hematocrit 31.4, platelet count is 242, so her white count went down. BUN is 11, creatinine 0.5. UA came out to be with protein 1+ and rbc 4. Sodium 136, potassium 4.1, chloride of 104, CO2 is 28. Chest x-ray shows complete opacification of right hemithorax, median sternotomy, right paramediastinal surgical clip, subtle rounded opacities within the right medial midlung measuring approximately 8 mm and 10 mm. ASSESSMENT AND PLAN: She does have some opacities in the right lung. She has history of lung cancer, pneumonectomy, left hip pain, and she remains on hydromorphone, lidocaine, and she is off all antibiotics at this time which were discontinued. So, we will suggest to monitor the temperature as well as the white count as it is low. She is status post radiation and is waiting for rehab, remains tachycardic and is bed bound, should probably be on heparin subcutaneous and sputum culture is pending. Otherwise, all cultures are negative. Chemistry shows hemoglobin is this but I will put her on heparin subcutaneous for now for deep venous thrombosis prophylaxis. Saumya Rosenbaum MD [facility] # [id number]
[2018-06-10 01:41] VITALS: O2SAT 95
[2018-06-10] MEDS: Fluticasone-Vilanterol 200/25mcg Diskus INH SCH (08:43)
[2018-06-10] MEDS: Lidocaine 5% Patch TD SCH (10:13)
[2018-06-10] MEDS: Magnesium Hydroxide Susp 30 ml UD PO PRN (10:13)
[2018-06-10 10:41] VITALS: BP 102/73; PULSE 100; TEMP 98.1
--- NOTE | 2018-06-10 12:49 | CP.PCM.PN ---
Subjective - Date & Time of Evaluation Date of Evaluation: 06/10/18 Time of Evaluation: 07:45 - Subjective Subjective: clinically same Objective - Vital Signs/Intake and Output Vital Signs (last 24 hours): Temp Pulse Resp BP Pulse Ox 98.1 F 100 H 20 102/73 95 06/10/18 08:00 06/10/18 08:00 06/10/18 08:00 06/10/18 08:00 06/10/18 08:00 Intake and Output: 06/10/18 06/10/18 06:59 18:59 Intake Total 300 Balance 300 - Medications Medications: Current Medications Acetaminophen (Tylenol 325mg Tab) 650 mg PO Q6 PRN PRN Reason: Fever >100.4 F Last Admin: 06/10/18 00:20 Dose: 650 mg Artificial Tears (Artificial Tears) 0.1 ml OU Q4H PRN PRN Reason: dry eyes Last Admin: 06/08/18 09:26 Dose: 2 drop Fentanyl (Duragesic) 1 patch TD Q72H [facility] Last Admin: 06/09/18 10:24 Dose: 1 patch Fentanyl (Duragesic) 1 patch TD Q72H [facility] Last Admin: 06/09/18 10:25 Dose: 1 patch Fluticasone/Vilanterol (Breo Ellipta 200-25 Mcg Inh) 1 puff INH RQD [facility] Last Admin: 06/10/18 08:43 Dose: Not Given Heparin Sodium (Porcine) (Heparin) 5,000 units SC Q8 [facility] Last Admin: 06/10/18 05:36 Dose: 5,000 units Hydromorphone HCl (Dilaudid) 2 mg IVP Q4H PRN PRN Reason: pain Last Admin: 06/10/18 00:20 Dose: 2 mg Lidocaine (Lidoderm) 1 ea TD DAILY [facility] Last Admin: 06/10/18 10:13 Dose: 1 ea Magnesium Hydroxide (Milk Of Magnesia) 30 ml PO DAILY PRN PRN Reason: Constipation Last Admin: 06/10/18 10:13 Dose: 30 ml - Labs Labs: 06/06/18 07:46 06/06/18 07:44 Assessment and Plan (1) Chronic pain due to neoplasm Status: Acute (2) History of pneumonectomy Status: Acute (3) Metastatic cancer to lung Status: Acute (4) Metastatic lung cancer (metastasis from lung to other site) Status: Acute (5) Unable to ambulate Status: Acute
== END 2018-06-10 16:20 | disposition home or self-care (01) | DRG 948 ==
LOC: C.ER 13:11 → C.3T 17:59
PROVIDERS: ADMIT Internal Medicine Nephrology; ATTEND Internal Medicine Nephrology
DX: G89.3 Neoplasm related pain (acute) (chronic) (principal); C34.90 Malignant neoplasm of unspecified part of unspecified bronchus or lung; C79.51 Secondary malignant neoplasm of bone; J44.9 Chronic obstructive pulmonary disease, unspecified; Z74.01 Bed confinement status; K59.00 Constipation, unspecified; Z87.891 Personal history of nicotine dependence; F41.9 Anxiety disorder, unspecified

== ENCOUNTER 2018-06-23 11:36 | Inpatient (IN) | payer MEDICARE, BC, MEDICAID ==
[2018-06-23 11:37] VITALS: BMI 20.2
[2018-06-23] MEDS ORDERED: Sodium Chloride 0.9% 1,000 ML ONE ×2 (12:14→13:35)
[2018-06-23] MEDS ORDERED: Sodium Chloride 0.9% 1,000 ML IV ONE ×3 (12:18→18:04)
[2018-06-23 12:36] LABS: BASO % 0.3 % (0.0-2.0); EOS % 0.2 % (0.0-4.0); LYMPH # 0.4 K/uL (1.0-4.3); LYMPH % 9.7 % (20.0-40.0); MEAN CORPUSCULAR HEMOGLOBIN 27.9 pg (27.0-31.0); MEAN CORPUSCULAR HGB CONC 32.5 g/dL (33.0-37.0); MEAN PLATELET VOLUME 8.7 fL (7.2-11.7); MONO # 0.4 K/uL (0.0-0.8); NEUT # 3.2 K/uL (1.8-7.0); NEUT % 78.8 % (50.0-75.0); PLATELET COUNT 306 K/uL (130-400); RBC 4.31 Mil/uL (3.80-5.20); RED CELL DISTRIBUTION WIDTH 15.9 % (11.5-14.5)
[2018-06-23 12:37] LABS: MEAN CELL VOLUME 85.9 fL (81.0-99.0); WHITE BLOOD COUNT 4.1 K/uL (4.8-10.8)
[2018-06-23 12:51] LABS: VENOUS BLOOD GAS BASE EXCESS 1.5 mmol/L (0.0-2.0); VENOUS BLOOD GAS PCO2 39 mmHg (40-60); VENOUS BLOOD GAS PO2 38 mm/Hg (30-55); VENOUS BLOOD PH 7.43 (7.32-7.43)
[2018-06-23 12:59] LABS: ALB/GLOB RATIO 1.2 (1.0-2.1); ALBUMIN 3.6 g/dL (3.5-5.0); ALT/SGPT 65 U/L (9-52); AST/SGOT 42 U/L (14-36); BLOOD UREA NITROGEN 14 mg/dL (7-17); CALCIUM 6.9 mg/dl (8.6-10.4); GFR NON-AFRICAN AMERICAN > 60
[2018-06-23] MEDS ORDERED: Potassium Chloride 20 mEq ER Tab PO STA (13:03)
[2018-06-23 13:07] LABS: CK-MB < 0.22 ng/mL (0.0-3.38)
[2018-06-23 13:27] LABS: ANISOCYTOSIS SLIGHT; BANDS 1 % (0-2); GIANT PLATELETS PRESENT; LARGE PLATELETS PRESENT; LYMPHOCYTE 9 % (20-40); MONOCYTE 10 % (0-10); NEUTROPHIL 80 % (50-75); OVALOCYTES SLIGHT; PLATELET ESTIMATE NORMAL (NORMAL); POIKILOCYTOSIS SLIGHT; TOTAL CELLS COUNTED 100
--- NOTE | 2018-06-23 13:27 | C.PDOC ---
History Of Present Illness Patient KELSI from Dr. Taylor's office, has been feeling weak for approx 4-5 days, associated with nausea. She has PMhx of asthma/copd, lung CA s/p resection, right hip "bone cancer". She denies chest pain, SOB, palpitations, cough, fever, vomiting, diarrhea, dysuria. Time Seen by Provider: 06/23/18 11:49 Chief Complaint (Nursing): Weakness/Neurological Deficit History Per: Patient History/Exam Limitations: no limitations Onset/Duration Of Symptoms: Days (4-5) Past Medical History Reviewed: Historical Data, Nursing Documentation, Vital Signs Vital Signs: Last Vital Signs Temp 98.8 F 06/23/18 11:51 Pulse 119 H 06/23/18 11:51 Resp 18 06/23/18 11:51 BP 92/66 L 06/23/18 11:51 Pulse Ox 96 06/23/18 11:51 - Medical History PMH: Anxiety, Asthma, Bronchitis, COPD Surgical History: No Surg Hx Denies: Pacemaker - [facility] Procedures ENDOSCOPIC BRONCHIAL BX (07/05/13) Family History: States: No Known Family Hx - Social History Hx Alcohol Use: No Hx Substance Use: No - Immunization History Hx Tetanus Toxoid Vaccination: No Hx Influenza Vaccination: No Hx Pneumococcal Vaccination: No Review Of Systems Constitutional: Positive for: Weakness ENT: Negative for: Nose Discharge Cardiovascular: Negative for: Palpitations Respiratory: Negative for: Cough, Shortness of Breath Gastrointestinal: Positive for: Nausea. Negative for: Vomiting, Abdominal Pain, Diarrhea Genitourinary: Negative for: Dysuria, Hematuria Skin: Negative for: Rash Neurological: Negative for: Weakness, Numbness, Headache, Dizziness Physical Exam - Physical Exam Appears: Well, Non-toxic, In Acute Distress (appears uncomfortable ) Skin: Normal Color, Warm, Dry Eye(s): bilateral: Normal Inspection, PERRL, EOMI Oral Mucosa: Dry Cardiovascular: Rhythm Regular Respiratory: Decreased Breath Sounds (right side ), No Rales, No Rhonchi, No Wheezing Gastrointestinal/Abdominal: Normal Exam, Bowel Sounds, Soft, No Tenderness Extremity: Normal ROM, No Pedal Edema, No Calf Tenderness Pulses: Left Dorsalis Pedis: Normal, Right Dorsalis Pedis: Normal Neurological/Psych: Oriented x3, Normal Speech, Normal Cognition ED Course And Treatment - Laboratory Results Result Diagrams: 06/29/18 07:05 06/27/18 08:05 Lab Results: pO2 38 mm/Hg (30-55) 06/23/18 12:47 VBG pH 7.43 (7.32-7.43) 06/23/18 12:47 VBG pCO2 39 mmHg (40-60) L 06/23/18 12:47 VBG HCO3 25.5 mmol/L 06/23/18 12:47 VBG Total CO2 27.1 mmol/L (22-28) 06/23/18 12:47 VBG O2 Sat (Calc) 80.4 % (40-65) H 06/23/18 12:47 VBG Base Excess 1.5 mmol/L (0.0-2.0) 06/23/18 12:47 VBG Potassium 2.6 mmol/L (3.6-5.2) L 06/23/18 12:47 Sodium 136.0 mmol/l (132-148) 06/23/18 12:47 Chloride 103.0 mmol/L (98-107) 06/23/18 12:47 Glucose 91 mg/dl (65-105) 06/23/18 12:47 Lactate 1.6 mmol/L (0.7-2.1) 06/23/18 12:47 Troponin I < 0.0120 ng/mL (0.00-0.120) 06/23/18 12:31 Total Bilirubin 1.0 mg/dL (0.2-1.3) 06/23/18 12:31 AST 42 U/L (14-36) H D 06/23/18 12:31 ALT 65 U/L (9-52) H D 06/23/18 12:31 Alkaline Phosphatase 132 U/L (38-126) H D 06/23/18 12:31 Total Protein 6.6 g/dL (6.3-8.3) 06/23/18 12:31 Albumin 3.6 g/dL (3.5-5.0) 06/23/18 12:31 Globulin 3.0 gm/dL (2.2-3.9) 06/23/18 12:31 Albumin/Globulin Ratio 1.2 (1.0-2.1) 06/23/18 12:31 ECG: Interpreted By Me, Viewed By Me (sinus tachycardia 110bpm, normal axis, no acute ST/T wave changes, no U waves) ECG Interpretation: Abnormal O2 Sat by Pulse Oximetry: 96 (RA) Pulse Ox Interpretation: Normal - Radiology CXR: Interpreted by Me, Viewed By Me (complete white out right lung, no infil trates ) Progress Note: Blood work, EKG, CXR, UA ordered and reviewed. Patient given IV NS bolus x 3, IV KCL, IV fentanyl for pain. - Physician Consult Information Physician Contacted: Bret Benjamin Outcome Of Conversation: Discussed patient with physican covering Dr. Guthrie - he agrees with admission for dehydration, generalized weakness, lung CA with metastasis, chornic pain, hypokalemia. Critical Care Time - Critical Care Note Total Time (in mins): 40 Documented critical care: time excludes all time spent performing seperately billable procedures. Disposition - Disposition Disposition: HOSPITALIZED Disposition Time: 16:29 Condition: STABLE - Clinical Impression Clinical Impression: Dehydration, Hypokalemia, Generalized weakness, Chronic pain, Metastatic primary lung cancer Decision To Admit - Pt Status Changed To: Hospital Disposition Of: Inpatient - Admit Certification Admit to Inpatient:: After my assessment, the patient will require hospitalization for at least two midnights. This is because of the severity of symptoms shown, intensity of services needed, and/or the medical risk in this patient being treated as an outpatient. - InPatient: Physician Admission Certification: I certify that this patient requires 2 or more midnights of care for the following reason:: see notes - . Bed Request Type: Regular Admitting Physician: Bret Benjamin Patient Diagnosis: Dehydration, Generalized weakness, Chronic pain, Hypokalemia, Metastatic primary lung cancer
[2018-06-23] MEDS ORDERED: Potassium Chloride 20 mEq ER Tab PO ONE (13:35)
[2018-06-23] MEDS ORDERED: Potassium Chloride 20 mEq 100 ML ONE (13:36)
--- NOTE | 2018-06-23 14:06 | RAD ---
Date of service: 06/23/2018 PROCEDURE: CHEST RADIOGRAPH, 1 VIEW HISTORY: weak COMPARISON: Comparison is made with 06/09/2018 FINDINGS: LUNGS: Again noted is complete white out of the right chest. No evidence of significant interval change in the left lung compared to the previous exam. Again noted is focal opacity/nodule at the mid left lung measures approximately 1.8 centimeter. PLEURA: The possibility of large right pleural effusion cannot be excluded. CARDIOVASCULAR: No aortic atherosclerotic calcification present. Normal. OSSEOUS STRUCTURES: No significant abnormalities. VISUALIZED UPPER ABDOMEN: Normal. OTHER FINDINGS: None. IMPRESSION: Again noted is complete opacification of the right lung/complete white out of the right chest. Suspicious for nodule at the mid left lung measures 1.8 centimeter. If indicated further evaluation by CT of the chest is suggested.
[2018-06-23] MEDS ORDERED: Aritificial Tears (15ml) OU PRN (17:56)
--- NOTE | 2018-06-23 17:56 | CP.PCM.HP ---
History of Present Illness - History of Present Illness History of Present Illness: Patient KELSI from Dr. Taylor's office, has been feeling weak for approx 4-5 days, associated with nausea. She has PMhx of asthma/copd, lung CA s/p resection, right hip "bone cancer". She denies chest pain, SOB, palpitations, cough, fe ai, vomiting, diarrhea, dysuria. Present on Admission - Present on Admission Any Indicators Present on Admission: No Review of Systems - Review of Systems All systems: reviewed and no additional remarkable complaints except (As mentioned in HPI) Past Patient History - Past Medical History & Family History Past Medical History?: Yes - Past Social History Smoking Status: Former Smoker - CARDIAC Hx Pacemaker: No - PULMONARY Hx Asthma: Yes Hx Bronchitis: Yes Hx Chronic Obstructive Pulmonary Disease (COPD): Yes - NEUROLOGICAL Hx Paralysis: No - HEMATOLOGICAL/ONCOLOGICAL Hx Blood Disorders: Yes Hx Cancer: Yes (Bone with mets) - MUSCULOSKELETAL/RHEUMATOLOGICAL Hx Fractures: No - PSYCHIATRIC Hx Anxiety: Yes Hx Substance Use: No - SURGICAL HISTORY Hx Surgeries: Yes Other/Comment: Right lung sx. - ANESTHESIA Hx Anesthesia Reactions: No Hx Malignant Hyperthermia: No Meds Allergies/Adverse Reactions: Allergies Allergy/AdvReac Type Severity Reaction Status Date / Time No Known Allergies Allergy Verified 05/31/18 13:19 Physical Exam - Head Exam Head Exam: NORMAL INSPECTION - Eye Exam Eye Exam: Normal appearance - ENT Exam ENT Exam: Mucous Membranes Moist - Respiratory Exam Respiratory Exam: Decreased Breath Sounds - Cardiovascular Exam Cardiovascular Exam: REGULAR RHYTHM, +S1, +S2 - GI/Abdominal Exam GI & Abdominal Exam: Normal Bowel Sounds, Soft - Extremities Exam Extremities exam: Positive for: normal inspection Results - Vital Signs Recent Vital Signs: Last Vital Signs Temp 98.7 F 06/23/18 17:35 Pulse 96 H 06/23/18 17:35 Resp 20 06/23/18 17:35 BP 83/58 L 06/23/18 17:35 Pulse Ox 97 06/23/18 17:35 - Labs Result Diagrams: 06/25/18 08:07 06/25/18 08:07 Labs: Laboratory Results - last 24 hr 06/23/18 06/23/18 06/23/18 12:31 12:31 12:47 WBC 4.1 L D RBC 4.31 Hgb 12.0 Hct 37.0 MCV 85.9 D MCH 27.9 MCHC 32.5 L RDW 15.9 H Plt Count 306 MPV 8.7 Neut % (Auto) 78.8 H Lymph % (Auto) 9.7 L Boyle % (Auto) 11.0 H Eos % (Auto) 0.2 Baso % (Auto) 0.3 Neut # (Auto) 3.2 Lymph # (Auto) 0.4 L Boyle # (Auto) 0.4 Eos # (Auto) 0.0 Baso # (Auto) 0.0 Neutrophils % (Manual) 80 H Band Neutrophils % 1 Lymphocytes % (Manual) 9 L Monocytes % (Manual) 10 Platelet Estimate Normal Large Platelets Present Giant Platelets Present Poikilocytosis (manual Slight Anisocytosis (manual) Slight Ovalocytes Slight pO2 38 VBG pH 7.43 VBG pCO2 39 L VBG HCO3 25.5 VBG Total CO2 27.1 VBG O2 Sat (Calc) 80.4 H VBG Base Excess 1.5 VBG Potassium 2.6 L Glucose 91 Lactate 1.6 Sodium 131 L 136.0 Potassium 3.0 L Chloride 92 L 103.0 Carbon Dioxide 29 Anion Gap 13 BUN 14 Creatinine 0.5 L Est GFR ( Amer) > 60 Est GFR (Non-Af Amer) > 60 POC Glucose (mg/dL) Random Glucose 107 H D Calcium 6.9 L Total Bilirubin 1.0 AST 42 H D ALT 65 H D Alkaline Phosphatase 132 H D Total Creatine Kinase < 20 L CK-MB (Mass) < 0.22 Troponin I < 0.0120 Total Protein 6.6 Albumin 3.6 Globulin 3.0 Albumin/Globulin Ratio 1.2 Venous Blood Potassium 2.6 L Influenza Typ A,B (EIA) 06/23/18 06/23/18 15:40 16:44 WBC RBC Hgb Hct MCV MCH MCHC RDW Plt Count MPV Neut % (Auto) Lymph % (Auto) Boyle % (Auto) Eos % (Auto) Baso % (Auto) Neut # (Auto) Lymph # (Auto) Boyle # (Auto) Eos # (Auto) Baso # (Auto) Neutrophils % (Manual) Band Neutrophils % Lymphocytes % (Manual) Monocytes % (Manual) Platelet Estimate Large Platelets Giant Platelets Poikilocytosis (manual Anisocytosis (manual) Ovalocytes pO2 VBG pH VBG pCO2 VBG HCO3 VBG Total CO2 VBG O2 Sat (Calc) VBG Base Excess VBG Potassium Glucose Lactate Sodium Potassium Chloride Carbon Dioxide Anion Gap BUN Creatinine Est GFR ( Amer) Est GFR (Non-Af Amer) POC Glucose (mg/dL) 112 H Random Glucose Calcium Total Bilirubin AST ALT Alkaline Phosphatase Total Creatine Kinase CK-MB (Mass) Troponin I Total Protein Albumin Globulin Albumin/Globulin Ratio Venous Blood Potassium Influenza Typ A,B (EIA) Negative for flu a/b Assessment & Plan (1) COPD (chronic obstructive pulmonary disease) Status: Acute (2) Chronic pain due to neoplasm Status: Acute (3) History of pneumonectomy Status: Acute (4) Metastatic lung cancer (metastasis from lung to other site) Status: Acute (5) Unable to ambulate Status: Acute - Assessment and Plan (Free Text) Plan: Hematology consult Pain control Bronchodilators Brio Ellipta 200/25 mcg 1 puff daily Patient is status post XRT and 1 round of chemo Very poor prognosis DVT/GI prophylaxis
[2018-06-24] MEDS: Fluticasone-Vilanterol 200/25mcg Diskus INH SCH (07:30)
[2018-06-24] MEDS ORDERED: Magnesium Hydroxide Susp 30 ml UD PO SCH (08:30)
[2018-06-24] MEDS ORDERED: Iohexol 240 (50 ml) PO ONE (09:15)
[2018-06-24] MEDS: Enoxaparin 40 mg Syringe SC SCH (09:22)
[2018-06-24] MEDS: Magnesium Hydroxide Susp 30 ml UD PO SCH (09:33)
--- NOTE | 2018-06-24 11:35 | CON ---
DATE: 06/24/2018 HISTORY OF PRESENT ILLNESS: This is a 58-year-old woman with lung cancer with metastatic to her bones and to her pleura. She has pleural metastasis causing effusions. She comes to the hospital, 1. Severely week. 2. Short of breath on minimal observation. 3. Severe pain. She received radiation therapy to the sacrum but this did not help her much. She was on doses of Duragesic about 100 and still in severe pain. At present, her chest x-ray shows whiteout of the right lung and what we want to do is several things. 1. Pain control. I increased the Duragesic to 125 and increased the Dilaudid to 2 mg every 4 hours p.r.n. We are also giving her milk of magnesia daily to try to prevent constipation from the narcotics. 2. The patient needs a Port-A-Cath put in and we also need a tap of the lung to see if we can remove some of the fluid. I am ordering a CAT scan to further evaluate the lung and then they can make decision shall we want to proceed in terms of ultrasound guided or CAT scan guided removal of the fluid. Joel Taylor MD
--- NOTE | 2018-06-24 13:12 | US ---
Date of service: 06/24/2018 PROCEDURE: Limited ultrasound thorax HISTORY: LUNG CA COMPARISON: None.. TECHNIQUE: Standard protocol for this study/examination. FINDINGS: Ultrasound performed area of interest "right lung". No appreciable pleural effusion was identified. IMPRESSION: Limited ultrasound, no demonstrable pleural effusion.
[2018-06-24 14:27] LABS: INR 1.2; PROTHROMBIN TIME 13.5 SECONDS (9.7-12.2)
[2018-06-24] MEDS ORDERED: Iodixanol 320 MG/ML 100 ML BOTTLE IV ONE (14:57)
--- NOTE | 2018-06-24 16:34 | CT ---
Date of service: 06/24/2018 CT chest, abdomen, and pelvis with IV contrast Indication: effusion Technique: Contiguous axial images of the chest, abdomen, and pelvis. Coronal and Sagittal reformats generated and reviewed. This CT exam was performed using 1 or more of the following dose reduction techniques: Automated exposure control, adjustment of the MAA and/or kV according to patient size, and/or use of iterative reconstruction technique. Contrast: 100 mL Visipaque 320 IV Radiation dose: Total exam DLP = 401.97 MGy-cm. Comparison: Limited ultrasound performed 06/24/18, chest x-ray performed 06/23/18 the Findings: Visualized portions of the inferior thyroid gland appear unremarkable. The mediastinal and hilar vascular structures appear within normal limits. The heart appears within normal limits of size. Median sternotomy wires. Mediastinal deviation to the right. Status post right pneumonectomy. Heterogeneous appearance of fluid noted within the right pleural space; correlate clinically for possible presence of soft tissue and/or blood products. 12 x 18 mm left upper lobe pulmonary nodule. 6 mm left upper lobe pulmonary nodule. 2.9 x 4.1 cm heterogeneous mass at the interface of the right epicardial fat and chest wall. Adjacent 6 mm satellite nodule. Marked elevation of the right hemidiaphragm. Partially distended fluid-filled stomach. At least 4 hepatic hypodensities are identified representing either cysts or too small to characterize. Pancreatic atrophy. Decompressed gallbladder limits evaluation. The spleen, kidneys, pancreas, and adrenal glands appear unremarkable. The bowel loops appear within normal limits of caliber without evidence of intestinal obstruction. There is no definite free air. Uterus is present. The urinary bladder appears unremarkable. Extensive osseous destruction, soft tissue mass, and infiltration of the left sacrum and iliac with infiltration of the left iliacus and gluteus musculature. Suspect cortical disruption of the right iliac. Impression: Status post right pneumonectomy. Heterogeneous appearance of fluid noted within the right pleural space; correlate clinically for possible presence of soft tissue and/or blood products. 12 x 18 mm and 6 mm left upper lobe pulmonary nodules worrisome for metastases. 2.9 x 4.1 cm heterogeneous soft tissue mass at the interface of the right epicardial fat and chest wall. Adjacent 6 mm satellite nodule. Extensive osseous destruction, soft tissue mass, and infiltration of the left sacrum and iliac with infiltration of the left iliacus and gluteus musculature. Suspect cortical disruption of the right iliac. Marked elevation of the right hemidiaphragm. At least 4 hepatic hypodensities are identified representing either cysts or too small to characterize. Pancreatic atrophy. Additional findings as above.
--- NOTE | 2018-06-24 18:25 | CP.PCM.PN ---
Subjective - Date & Time of Evaluation Date of Evaluation: 06/24/18 Time of Evaluation: 18:25 - Subjective Subjective: Patient is seen and examined No events overnight Objective - Vital Signs/Intake and Output Vital Signs (last 24 hours): Temp Pulse Resp BP Pulse Ox 98 F 105 H 20 91/58 L 98 06/24/18 16:00 06/24/18 16:00 06/24/18 16:00 06/24/18 16:00 06/24/18 16:00 Intake and Output: 06/24/18 06/24/18 06:59 18:59 Intake Total 200 200 Output Total 400 Balance -200 200 - Medications Medications: Current Medications Acetaminophen (Tylenol 325mg Tab) 650 mg PO Q6 PRN PRN Reason: Fever >100.4 F Artificial Tears (Artificial Tears) 0.1 ml OU Q4H PRN PRN Reason: dry eyes Enoxaparin Sodium (Lovenox) 40 mg SC DAILY [facility] Last Admin: 06/24/18 09:22 Dose: 40 mg Fentanyl (Duragesic) 1 patch TD Q72H [facility] Last Admin: 06/24/18 09:22 Dose: 1 patch Fentanyl (Duragesic) 1 patch TD Q72H [facility] Last Admin: 06/24/18 09:22 Dose: 1 patch Fluticasone/Vilanterol (Breo Ellipta 200-25 Mcg Inh) 1 puff INH RQD [facility] Last Admin: 06/24/18 07:30 Dose: Not Given Hydromorphone HCl (Dilaudid) 2 mg IVP Q4H PRN PRN Reason: Pain, severe (8-10) Influenza Virus Vaccine (Flucelvax Quad 6572-6958 Syr) 60 mcg IM .ONCE ONE Stop: 06/26/18 10:01 Magnesium Hydroxide (Milk Of Magnesia) 30 ml PO DAILY [facility] Stop: 07/01/18 10:01 Last Admin: 06/24/18 09:33 Dose: 30 ml Ondansetron HCl (Zofran Inj) 4 mg IVP Q6H PRN PRN Reason: nausea and vomiting Last Admin: 06/23/18 22:15 Dose: 4 mg Pneumococcal Polyvalent Vaccine (Pneumovax 23 Vaccine) 0.5 ml IM .ONCE ONE Stop: 06/26/18 10:01 - Labs Labs: 06/23/18 12:31 06/23/18 12:31 PT 13.5 SECONDS (9.7-12.2) H 06/24/18 14:13 INR 1.2 06/24/18 14:13 APTT 27 SECONDS (21-34) 06/24/18 14:13 - Head Exam Head Exam: NORMAL INSPECTION - Eye Exam Eye Exam: Normal appearance - ENT Exam ENT Exam: Mucous Membranes Moist - Respiratory Exam Respiratory Exam: Decreased Breath Sounds - Cardiovascular Exam Cardiovascular Exam: REGULAR RHYTHM, +S1, +S2 - GI/Abdominal Exam GI & Abdominal Exam: Soft, Normal Bowel Sounds - Extremities Exam Extremities Exam: Normal Inspection - Neurological Exam Neurological Exam: Alert, Oriented x3 - Psychiatric Exam Psychiatric exam: Normal Affect, Normal Mood Assessment and Plan (1) COPD (chronic obstructive pulmonary disease) Status: Acute (2) Chronic pain due to neoplasm Status: Acute (3) History of pneumonectomy Status: Acute (4) Metastatic lung cancer (metastasis from lung to other site) Status: Acute (5) Unable to ambulate Status: Acute - Assessment and Plan (Free Text) Plan: Bronchodilators Brio Ellipta 200/25 mcg 1 puff daily Dilaudid for pain control Supportive care Very poor prognosis DVT/GI prophylaxis
--- NOTE | 2018-06-24 20:12 | CARD ---
APPROVED REPORT Date of service: 06/23/2018 EKG Measurement Heart [id number] <Conclusion> Sinus tachycardia Biatrial enlargement Abnormal ECG
[2018-06-25 06:50] LABS: SQUAMOUS EPITHIAL < 1 /hpf (0-5); URINE BACTERIA RARE (<OCC); URINE BILIRUBIN NEGATIVE (NEGATIVE); URINE BLOOD NEGATIVE (NEGATIVE); URINE CLARITY Hazy (Clear); URINE COLOR Straw (YELLOW); URINE GLUCOSE (UA) NORMAL (Normal); URINE LEUKOCYTE ESTERASE 2+ Leu/uL (Negative); URINE PROTEIN NEGATIVE (NEGATIVE); URINE UROBILINOGEN NORMAL mg/dL (0.2-1.0)
[2018-06-25 08:23] LABS: BASO % 0.2 % (0.0-2.0); EOS % 0.4 % (0.0-4.0); HEMOGLOBIN 10.3 g/dL (11.0-16.0); LYMPH # 0.3 K/uL (1.0-4.3); MEAN CORPUSCULAR HEMOGLOBIN 28.1 pg (27.0-31.0); MONO # 0.5 K/uL (0.0-0.8); NEUT # 0.8 K/uL (1.8-7.0); NRBC % 0.1 % (0.0-2.0)
[2018-06-25 08:31] LABS: MEAN CELL VOLUME 85.7 fL (81.0-99.0); MEAN CORPUSCULAR HGB CONC 32.8 g/dL (33.0-37.0); MEAN PLATELET VOLUME 8.2 fL (7.2-11.7); MONO % 30.1 % (0.0-10.0); NEUT % 50.3 % (50.0-75.0); PLATELET COUNT 232 K/uL (130-400); RBC 3.65 Mil/uL (3.80-5.20); RED CELL DISTRIBUTION WIDTH 16.4 % (11.5-14.5)
[2018-06-25 08:34] LABS: WHITE BLOOD COUNT 1.5 K/uL (4.8-10.8)
[2018-06-25 08:51] LABS: ALB/GLOB RATIO 1.2 (1.0-2.1); ALBUMIN 3.1 g/dL (3.5-5.0); ALT/SGPT 40 U/L (9-52); AST/SGOT 21 U/L (14-36); BLOOD UREA NITROGEN 5 mg/dL (7-17); CALCIUM 6.9 mg/dl (8.6-10.4); GFR NON-AFRICAN AMERICAN > 60
[2018-06-25] MEDS ORDERED: Midazolam 2 MG/2 ML VIAL ONE (09:17)
[2018-06-25] MEDS ORDERED: Propofol 10 mg/ml Inj (20 ML) ONE (09:18)
[2018-06-25] MEDS ORDERED: Lidocaine/Epinephrine 1% 1:100000 10 ML IJ ONE (09:21)
[2018-06-25] MEDS ORDERED: ceFAZolin 1 gm in NS 1 GM/100 ML BAG IVPB ONE (09:21)
[2018-06-25] MEDS ORDERED: HEPARIN-NS 5,000 UNITS/500 ML 5,000 UNIT/500 ML BAG IV ONE (09:31)
[2018-06-25] MEDS ORDERED: HYDROmorphone 0.5 mg/0.5 ml ISec IVP PRN (09:46)
--- NOTE | 2018-06-25 10:11 | PCM.SURG1 ---
Surgeon's Initial Post Op Note - Surgeon's Notes Surgeon: Marty Daugherty MD [employer] Software Engineer: NONE Type of Anesthesia: IV Sedation, Local Pre-Operative Diagnosis: Lung cancer requiring port for chemotherapy. Operative Findings: Patent left IJV Post-Operative Diagnosis: LUng cancer Operation Performed: Left IJV Port placement Specimen/Specimens Removed: none Estimated Blood Loss: EBL {In ML}: 5 Blood Products Given: N/A Drains Used: No Drains Post-Op Condition: Fair Date of Surgery/Procedure: 06/25/18 Time of Surgery/Procedure: 10:10
[2018-06-25 10:26] LABS: LYMPHOCYTE 19 % (20-40); MONOCYTE 29 % (0-10); NEUTROPHIL 52 % (50-75); PLATELET ESTIMATE NORMAL (NORMAL); TOTAL CELLS COUNTED 100
[2018-06-25 10:28] LABS: ANISOCYTOSIS SLIGHT; LARGE PLATELETS PRESENT; OVALOCYTES SLIGHT
[2018-06-25] MEDS: Enoxaparin 40 mg Syringe SC SCH (10:53)
[2018-06-25] MEDS: Magnesium Hydroxide Susp 30 ml UD PO SCH (10:54)
[2018-06-25] MEDS: Fluticasone-Vilanterol 200/25mcg Diskus INH SCH (13:35)
--- NOTE | 2018-06-25 14:02 | RAD ---
PROCEDURE: Date of procedure: 06/25/2018 Procedure: 1. Placement of a left IJ port catheter with ultrasound and fluoroscopic guidance, CPT 38685 2. Catheter tip confirmation with spot radiograph in the superior vena cava. Medications: The patient was sedated anesthesiologist along with monitoring, Ancef 1 gm, Lidocaine 1% w Epinephrine. Fluoroscopic time: 88.1 Seconds Radiation: 19.75 MGy Blood loss: 5 cc HISTORY: Lung cancer requiring port for chemotherapy TECHNIQUE: Following informed consent the procedure time-out, the patient was placed supine on the interventional table and the patient's left neck and chest were prepped and draped in the usual sterile fashion. Ultrasound showed a compressible left internal jugular vein. After the patient was sedated by the anesthesiologist, the skin was anesthetized with 1% lidocaine with epinephrine. Under direct ultrasound guidance, the left internal jugular vein was accessed with micropuncture technique. A guidewire was then advanced under fluoroscopic guidance into the superior vena cava. An image documenting ultrasound guidance for vascular access was permanently saved. The subcutaneous tissue of patient left chest was infiltrated with 1 percent lidocaine with epinephrine. A dermatotomy was made with a 15. Scalpel. The port pocket was then created with blunt dissection using a No clamp. The port pocket was flushed. A port catheter was then tunneled under the skin and out the venotomy site. The port catheter was flushed, advanced through a peel-away sheath, adjusted for length, and attached to the port. The port was placed in the port pocket and was secured with 2-0 SurgiPro sutures. The port was flushed and locked with heparin. The port pocket was then closed with absorbable 4-0 Polysorb sutures. The port pocket and the venotomy site were reprepped with ChloraPrep. Steri-Strips were then applied to the port incision also venotomy site. A sterile dressing was then applied. Final spot radiograph showed the left IJ port catheter with tip of the port catheter in the superior vena cava. A port is functional and ready for use. IMPRESSION: Placement of left IJ port catheter. Tip of the port is confirmed with fluoroscopic image and is in superior vena cava. The port is functional and can be used.
[2018-06-25 17:27] VITALS: RESP 20
--- NOTE | 2018-06-25 18:12 | CP.PCM.PN ---
Subjective - Date & Time of Evaluation Date of Evaluation: 06/25/18 Time of Evaluation: 18:08 - Subjective Subjective: Pt is seen and examined No events overnight Objective - Vital Signs/Intake and Output Vital Signs (last 24 hours): Temp Pulse Resp BP Pulse Ox 98 F 101 H 20 99/69 L 96 06/25/18 16:00 06/25/18 16:00 06/25/18 16:00 06/25/18 16:00 06/25/18 16:00 Intake and Output: 06/25/18 06/25/18 06:59 18:59 Intake Total 500 Balance 500 - Medications Medications: Current Medications Acetaminophen (Tylenol 325mg Tab) 650 mg PO Q6 PRN PRN Reason: Fever >100.4 F Artificial Tears (Artificial Tears) 0.1 ml OU Q4H PRN PRN Reason: dry eyes Enoxaparin Sodium (Lovenox) 40 mg SC DAILY [facility] Last Admin: 06/25/18 10:53 Dose: Not Given Fentanyl (Duragesic) 1 patch TD Q72H [facility] Last Admin: 06/24/18 09:22 Dose: 1 patch Fentanyl (Duragesic) 1 patch TD Q72H [facility] Last Admin: 06/24/18 09:22 Dose: 1 patch Fluticasone/Vilanterol (Breo Ellipta 200-25 Mcg Inh) 1 puff INH RQD [facility] Last Admin: 06/25/18 13:35 Dose: 1 puff Hydromorphone HCl (Dilaudid) 2 mg IVP Q4H PRN PRN Reason: Pain, severe (8-10) Influenza Virus Vaccine (Flucelvax Quad [id number] Syr) 60 mcg IM .ONCE ONE Stop: 06/26/18 10:01 Magnesium Hydroxide (Milk Of Magnesia) 30 ml PO DAILY [facility] Stop: 07/01/18 10:01 Last Admin: 06/25/18 10:54 Dose: Not Given Ondansetron HCl (Zofran Inj) 4 mg IVP Q6H PRN PRN Reason: nausea and vomiting Last Admin: 06/23/18 22:15 Dose: 4 mg Pneumococcal Polyvalent Vaccine (Pneumovax 23 Vaccine) 0.5 ml IM .ONCE ONE Stop: 06/26/18 10:01 - Labs Labs: 06/25/18 08:07 06/25/18 08:07 PT 13.5 SECONDS (9.7-12.2) H 06/24/18 14:13 INR 1.2 06/24/18 14:13 APTT 27 SECONDS (21-34) 06/24/18 14:13 - Head Exam Head Exam: NORMAL INSPECTION - Eye Exam Eye Exam: Normal appearance - ENT Exam ENT Exam: Mucous Membranes Moist - Respiratory Exam Respiratory Exam: Clear to Ausculation Bilateral - Cardiovascular Exam Cardiovascular Exam: REGULAR RHYTHM, +S1, +S2 - GI/Abdominal Exam GI & Abdominal Exam: Soft, Normal Bowel Sounds - Extremities Exam Extremities Exam: Normal Inspection Assessment and Plan (1) Chronic pain due to neoplasm Status: Acute (2) History of pneumonectomy Status: Acute (3) Metastatic lung cancer (metastasis from lung to other site) Status: Acute (4) Unable to ambulate Status: Acute (5) COPD (chronic obstructive pulmonary disease) Status: Acute (6) Leukopenia Status: Acute - Assessment and Plan (Free Text) Plan: Pain control S/P haroldo cath Breo Duonebs Replace electrolytes Follow CBC in AM DVT/GI prophalaxis
[2018-06-26 06:34] LABS: HEMOGLOBIN 9.3 g/dL (11.0-16.0); MEAN CELL VOLUME 87.1 fL (81.0-99.0); MEAN CORPUSCULAR HEMOGLOBIN 27.9 pg (27.0-31.0); MEAN CORPUSCULAR HGB CONC 32.1 g/dL (33.0-37.0); MEAN PLATELET VOLUME 8.1 fL (7.2-11.7); RBC 3.32 Mil/uL (3.80-5.20); RED CELL DISTRIBUTION WIDTH 16.5 % (11.5-14.5)
[2018-06-26 06:51] LABS: ALB/GLOB RATIO 1.2 (1.0-2.1); ALBUMIN 2.9 g/dL (3.5-5.0); ALT/SGPT 34 U/L (9-52); AST/SGOT 15 U/L (14-36); BLOOD UREA NITROGEN 9 mg/dL (7-17); CALCIUM 7.8 mg/dl (8.6-10.4); GFR NON-AFRICAN AMERICAN > 60
[2018-06-26 06:53] LABS: WHITE BLOOD COUNT 1.2 K/uL (4.8-10.8)
[2018-06-26] MEDS: Enoxaparin 40 mg Syringe SC SCH (09:46)
[2018-06-26] MEDS: Magnesium Hydroxide Susp 30 ml UD PO SCH ×2 (09:47→09:51)
[2018-06-26] MEDS ORDERED: Influenza Vaccine 60 mcg/0.5 mL SYR (4YR UP) IM ONE (10:00)
[2018-06-26] MEDS ORDERED: Pneumococcal 23-Valent Vaccine IM ONE (10:00)
--- NOTE | 2018-06-26 13:27 | CP.PCM.PN ---
Subjective - Date & Time of Evaluation Date of Evaluation: 06/26/18 Time of Evaluation: 13:24 - Subjective Subjective: Pt is seen and examined C/O pain WBC continues to trend down Objective - Vital Signs/Intake and Output Vital Signs (last 24 hours): Temp Pulse Resp BP Pulse Ox 98.2 F 108 H 20 101/66 97 06/26/18 08:45 06/26/18 08:45 06/26/18 08:45 06/26/18 08:45 06/26/18 08:45 Intake and Output: 06/26/18 06/26/18 06:59 18:59 Intake Total 450 100 Balance 450 100 - Medications Medications: Current Medications Acetaminophen (Tylenol 325mg Tab) 650 mg PO Q6 PRN PRN Reason: Fever >100.4 F Artificial Tears (Artificial Tears) 0.1 ml OU Q4H PRN PRN Reason: dry eyes Enoxaparin Sodium (Lovenox) 40 mg SC DAILY [facility] Last Admin: 06/26/18 09:46 Dose: 40 mg Fentanyl (Duragesic) 1 patch TD Q72H [facility] Last Admin: 06/24/18 09:22 Dose: 1 patch Fentanyl (Duragesic) 1 patch TD Q72H [facility] Last Admin: 06/24/18 09:22 Dose: 1 patch Fluticasone/Vilanterol (Breo Ellipta 200-25 Mcg Inh) 1 puff INH RQD [facility] Last Admin: 06/25/18 13:35 Dose: 1 puff Hydromorphone HCl (Dilaudid) 2 mg IVP Q4H PRN PRN Reason: Pain, severe (8-10) Last Admin: 06/26/18 08:55 Dose: 2 mg Magnesium Hydroxide (Milk Of Magnesia) 30 ml PO DAILY [facility] Stop: 07/01/18 10:01 Last Admin: 06/26/18 09:51 Dose: Not Given Ondansetron HCl (Zofran Inj) 4 mg IVP Q6H PRN PRN Reason: nausea and vomiting Last Admin: 06/23/18 22:15 Dose: 4 mg - Labs Labs: 06/26/18 06:20 06/26/18 06:20 PT 13.5 SECONDS (9.7-12.2) H 06/24/18 14:13 INR 1.2 06/24/18 14:13 APTT 27 SECONDS (21-34) 06/24/18 14:13 - Head Exam Head Exam: NORMAL INSPECTION - Eye Exam Eye Exam: Normal appearance - ENT Exam ENT Exam: Mucous Membranes Moist - Respiratory Exam Respiratory Exam: Decreased Breath Sounds - Cardiovascular Exam Cardiovascular Exam: REGULAR RHYTHM, +S1, +S2 - GI/Abdominal Exam GI & Abdominal Exam: Soft, Normal Bowel Sounds - Extremities Exam Extremities Exam: Normal Inspection - Neurological Exam Neurological Exam: Alert, Oriented x3 Assessment and Plan (1) COPD (chronic obstructive pulmonary disease) Status: Acute (2) Chronic pain due to neoplasm Status: Acute (3) History of pneumonectomy Status: Acute (4) Metastatic lung cancer (metastasis from lung to other site) Status: Acute (5) Unable to ambulate Status: Acute - Assessment and Plan (Free Text) Plan: Pain control Breo Ellipta Duonebs Follow WBC Hemetalogy consult Neutropenic precautions DVT/GI prophalaxis
--- NOTE | 2018-06-26 17:03 | CP.PCM.CON ---
Past Patient History - Past Medical History & Family History Past Medical History?: Yes - Past Social History Smoking Status: Former Smoker - CARDIAC Hx Pacemaker: No - PULMONARY Hx Chronic Obstructive Pulmonary Disease (COPD): Yes - NEUROLOGICAL Hx Paralysis: No - HEMATOLOGICAL/ONCOLOGICAL Hx Blood Disorders: Yes Hx Cancer: Yes (Bone with mets) - MUSCULOSKELETAL/RHEUMATOLOGICAL Hx Fractures: No - PSYCHIATRIC Hx Anxiety: Yes Hx Substance Use: No - SURGICAL HISTORY Hx Surgeries: Yes Other/Comment: Right lung sx. - ANESTHESIA Hx Anesthesia Reactions: No Hx Malignant Hyperthermia: No Meds Allergies/Adverse Reactions: Allergies Allergy/AdvReac Type Severity Reaction Status Date / Time No Known Allergies Allergy Verified 05/31/18 13:19 - Medications Medications: Current Medications Acetaminophen (Tylenol 325mg Tab) 650 mg PO Q6 PRN PRN Reason: Fever >100.4 F Artificial Tears (Artificial Tears) 0.1 ml OU Q4H PRN PRN Reason: dry eyes Enoxaparin Sodium (Lovenox) 40 mg SC DAILY [facility] Last Admin: 06/26/18 09:46 Dose: 40 mg Fentanyl (Duragesic) 1 patch TD Q72H [facility] Last Admin: 06/24/18 09:22 Dose: 1 patch Fentanyl (Duragesic) 1 patch TD Q72H [facility] Last Admin: 06/24/18 09:22 Dose: 1 patch Fluticasone/Vilanterol (Breo Ellipta 200-25 Mcg Inh) 1 puff INH RQD [facility] Last Admin: 06/25/18 13:35 Dose: 1 puff Hydromorphone HCl (Dilaudid) 2 mg IVP Q4H PRN PRN Reason: Pain, severe (8-10) Last Admin: 06/26/18 14:23 Dose: 2 mg Magnesium Hydroxide (Milk Of Magnesia) 30 ml PO DAILY [facility] Stop: 07/01/18 10:01 Last Admin: 06/26/18 09:51 Dose: Not Given Ondansetron HCl (Zofran Inj) 4 mg IVP Q6H PRN PRN Reason: nausea and vomiting Last Admin: 06/23/18 22:15 Dose: 4 mg Physical Exam - Constitutional Appears: Well - Head Exam Head Exam: ATRAUMATIC, NORMAL INSPECTION, NORMOCEPHALIC - Eye Exam Eye Exam: EOMI, Normal appearance, PERRL Pupil Exam: NORMAL ACCOMODATION, PERRL - ENT Exam ENT Exam: Mucous Membranes Moist, Normal Exam - Neck Exam Neck exam: Positive for: Normal Inspection - Respiratory Exam Respiratory Exam: Decreased Breath Sounds - Cardiovascular Exam Cardiovascular Exam: REGULAR RHYTHM, +S1, +S2 - GI/Abdominal Exam GI & Abdominal Exam: Diminished Bowel Sounds, Soft - Rectal Exam Rectal Exam: Deferred Results - Vital Signs Recent Vital Signs: Last Vital Signs Temp 97.9 F 06/26/18 15:58 Pulse 102 H 06/26/18 15:58 Resp 20 06/26/18 15:58 BP 94/61 L 06/26/18 15:58 Pulse Ox 97 06/26/18 15:58 - Labs Result Diagrams: 06/26/18 06:20 06/26/18 06:20 Labs: Laboratory Results - last 24 hr 06/26/18 06/26/18 06/26/18 06:20 06:20 07:15 WBC 1.2 L* RBC 3.32 L Hgb 9.3 L Hct 28.9 L MCV 87.1 MCH 27.9 MCHC 32.1 L RDW 16.5 H Plt Count 191 MPV 8.1 Sodium 132 Potassium 4.1 Chloride 96 L Carbon Dioxide 31 H Anion Gap 9 L BUN 9 Creatinine 0.4 L Est GFR ( Amer) > 60 Est GFR (Non-Af Amer) > 60 POC Glucose (mg/dL) 121 H Random Glucose 106 H Calcium 7.8 L Phosphorus 2.7 Magnesium 1.9 Total Bilirubin 0.3 AST 15 ALT 34 Alkaline Phosphatase 91 Total Protein 5.4 L Albumin 2.9 L Globulin 2.5 Albumin/Globulin Ratio 1.2 06/26/18 11:22 WBC RBC Hgb Hct MCV MCH MCHC RDW Plt Count MPV Sodium Potassium Chloride Carbon Dioxide Anion Gap BUN Creatinine Est GFR ( Amer) Est GFR (Non-Af Amer) POC Glucose (mg/dL) 123 H Random Glucose Calcium Phosphorus Magnesium Total Bilirubin AST ALT Alkaline Phosphatase Total Protein Albumin Globulin Albumin/Globulin Ratio
[2018-06-27 08:28] LABS: BASO % 0.1 % (0.0-2.0); EOS % 0.2 % (0.0-4.0); HEMOGLOBIN 9.2 g/dL (11.0-16.0); LYMPH # 0.3 K/uL (1.0-4.3); LYMPH % 23.7 % (20.0-40.0); MEAN CELL VOLUME 86.7 fL (81.0-99.0); MEAN CORPUSCULAR HEMOGLOBIN 28.2 pg (27.0-31.0); MEAN CORPUSCULAR HGB CONC 32.5 g/dL (33.0-37.0); MONO # 0.5 K/uL (0.0-0.8); MONO % 35.6 % (0.0-10.0); NEUT # 0.5 K/uL (1.8-7.0); NEUT % 40.4 % (50.0-75.0); NRBC % 0.2 % (0.0-2.0); RBC 3.25 Mil/uL (3.80-5.20)
[2018-06-27 08:31] LABS: WHITE BLOOD COUNT 1.3 K/uL (4.8-10.8)
[2018-06-27 08:53] LABS: ALB/GLOB RATIO 1.2 (1.0-2.1); ALBUMIN 3.1 g/dL (3.5-5.0); ALT/SGPT 31 U/L (9-52); AST/SGOT 18 U/L (14-36); BLOOD UREA NITROGEN 8 mg/dL (7-17); CALCIUM 8.8 mg/dl (8.6-10.4); GFR NON-AFRICAN AMERICAN > 60
[2018-06-27] MEDS: Fluticasone-Vilanterol 200/25mcg Diskus INH SCH (09:09)
[2018-06-27] MEDS: Enoxaparin 40 mg Syringe SC SCH (10:04)
[2018-06-27] MEDS: Magnesium Hydroxide Susp 30 ml UD PO SCH (10:04)
--- NOTE | 2018-06-27 12:44 | CP.PCM.PN ---
Subjective - Date & Time of Evaluation Date of Evaluation: 06/27/18 Time of Evaluation: 08:00 - Subjective Subjective: clinically same Objective - Vital Signs/Intake and Output Vital Signs (last 24 hours): Temp Pulse Resp BP Pulse Ox 99.8 F H 117 H 20 103/71 97 06/27/18 08:20 06/27/18 08:20 06/27/18 08:20 06/27/18 08:20 06/27/18 08:20 Intake and Output: 06/27/18 06/27/18 06:59 18:59 Intake Total 120 Balance 120 - Medications Medications: Current Medications Acetaminophen (Tylenol 325mg Tab) 650 mg PO Q6 PRN PRN Reason: Fever >100.4 F Artificial Tears (Artificial Tears) 0.1 ml OU Q4H PRN PRN Reason: dry eyes Enoxaparin Sodium (Lovenox) 40 mg SC DAILY [facility] Last Admin: 06/27/18 10:04 Dose: 40 mg Fentanyl (Duragesic) 1 patch TD Q72H [facility] Last Admin: 06/27/18 09:40 Dose: 1 patch Fentanyl (Duragesic) 1 patch TD Q72H [facility] Last Admin: 06/27/18 09:39 Dose: 1 patch Fluticasone/Vilanterol (Breo Ellipta 200-25 Mcg Inh) 1 puff INH RQD [facility] Last Admin: 06/27/18 09:09 Dose: 1 puff Hydromorphone HCl (Dilaudid) 2 mg IVP Q4H PRN PRN Reason: Pain, severe (8-10) Last Admin: 06/27/18 00:05 Dose: 2 mg Magnesium Hydroxide (Milk Of Magnesia) 30 ml PO DAILY [facility] Stop: 07/01/18 10:01 Last Admin: 06/27/18 10:04 Dose: Not Given Ondansetron HCl (Zofran Inj) 4 mg IVP Q6H PRN PRN Reason: nausea and vomiting Last Admin: 06/23/18 22:15 Dose: 4 mg - Labs Labs: 06/27/18 08:05 06/27/18 08:05 PT 13.5 SECONDS (9.7-12.2) H 06/24/18 14:13 INR 1.2 06/24/18 14:13 APTT 27 SECONDS (21-34) 06/24/18 14:13 - Constitutional Appears: Well - Head Exam Head Exam: ATRAUMATIC, NORMAL INSPECTION, NORMOCEPHALIC - Eye Exam Eye Exam: EOMI, Normal appearance, PERRL Pupil Exam: NORMAL ACCOMODATION, PERRL - ENT Exam ENT Exam: Mucous Membranes Moist, Normal Exam - Neck Exam Neck Exam: Full ROM, Normal Inspection. absent: Lymphadenopathy - Respiratory Exam Respiratory Exam: Decreased Breath Sounds - Cardiovascular Exam Cardiovascular Exam: REGULAR RHYTHM, +S1, +S2 - GI/Abdominal Exam GI & Abdominal Exam: Soft, Diminished Bowel Sounds - Rectal Exam Rectal Exam: Deferred
--- NOTE | 2018-06-27 13:14 | CP.PCM.PN ---
Subjective - Date & Time of Evaluation Date of Evaluation: 06/27/18 Time of Evaluation: 13:12 - Subjective Subjective: Pt is seen and examined WBC 1.3 Objective - Vital Signs/Intake and Output Vital Signs (last 24 hours): Temp Pulse Resp BP Pulse Ox 99.8 F H 117 H 20 103/71 97 06/27/18 08:20 06/27/18 08:20 06/27/18 08:20 06/27/18 08:20 06/27/18 08:20 Intake and Output: 06/27/18 06/27/18 06:59 18:59 Intake Total 120 Balance 120 - Medications Medications: Current Medications Acetaminophen (Tylenol 325mg Tab) 650 mg PO Q6 PRN PRN Reason: Fever >100.4 F Artificial Tears (Artificial Tears) 0.1 ml OU Q4H PRN PRN Reason: dry eyes Enoxaparin Sodium (Lovenox) 40 mg SC DAILY [facility] Last Admin: 06/27/18 10:04 Dose: 40 mg Fentanyl (Duragesic) 1 patch TD Q72H [facility] Last Admin: 06/27/18 09:40 Dose: 1 patch Fentanyl (Duragesic) 1 patch TD Q72H [facility] Last Admin: 06/27/18 09:39 Dose: 1 patch Fluticasone/Vilanterol (Breo Ellipta 200-25 Mcg Inh) 1 puff INH RQD [facility] Last Admin: 06/27/18 09:09 Dose: 1 puff Hydromorphone HCl (Dilaudid) 2 mg IVP Q4H PRN PRN Reason: Pain, severe (8-10) Last Admin: 06/27/18 00:05 Dose: 2 mg Magnesium Hydroxide (Milk Of Magnesia) 30 ml PO DAILY [facility] Stop: 07/01/18 10:01 Last Admin: 06/27/18 10:04 Dose: Not Given Ondansetron HCl (Zofran Inj) 4 mg IVP Q6H PRN PRN Reason: nausea and vomiting Last Admin: 06/23/18 22:15 Dose: 4 mg - Labs Labs: 06/27/18 08:05 06/27/18 08:05 PT 13.5 SECONDS (9.7-12.2) H 06/24/18 14:13 INR 1.2 06/24/18 14:13 APTT 27 SECONDS (21-34) 06/24/18 14:13 - Head Exam Head Exam: NORMAL INSPECTION - Eye Exam Eye Exam: Normal appearance - ENT Exam ENT Exam: Mucous Membranes Moist - Respiratory Exam Respiratory Exam: Decreased Breath Sounds - Cardiovascular Exam Cardiovascular Exam: REGULAR RHYTHM, +S1, +S2 - GI/Abdominal Exam GI & Abdominal Exam: Soft, Normal Bowel Sounds - Extremities Exam Extremities Exam: Normal Inspection - Neurological Exam Neurological Exam: Alert, Oriented x3 Assessment and Plan (1) COPD (chronic obstructive pulmonary disease) Status: Acute (2) Chronic pain due to neoplasm Status: Acute (3) History of pneumonectomy Status: Acute (4) Metastatic lung cancer (metastasis from lung to other site) Status: Acute (5) Unable to ambulate Status: Acute - Assessment and Plan (Free Text) Plan: Pain control Breo Ellipta Bronchodilators Follow WBC Neutropenic precautions DVT/GI prophalaxis
[2018-06-28] MEDS: Fluticasone-Vilanterol 200/25mcg Diskus INH SCH (07:35)
[2018-06-28] MEDS: Magnesium Hydroxide Susp 30 ml UD PO SCH (10:32)
[2018-06-28] MEDS: Enoxaparin 40 mg Syringe SC SCH (10:32)
[2018-06-28 11:59] LABS: BASO % 0.1 % (0.0-2.0); EOS % 0.2 % (0.0-4.0); HEMOGLOBIN 9.6 g/dL (11.0-16.0); LYMPH # 0.4 K/uL (1.0-4.3); LYMPH % 23.9 % (20.0-40.0); MEAN CELL VOLUME 86.6 fL (81.0-99.0); MEAN CORPUSCULAR HEMOGLOBIN 28.2 pg (27.0-31.0); MEAN CORPUSCULAR HGB CONC 32.5 g/dL (33.0-37.0); MEAN PLATELET VOLUME 7.9 fL (7.2-11.7); MONO # 0.5 K/uL (0.0-0.8); MONO % 31.9 % (0.0-10.0); NEUT # 0.7 K/uL (1.8-7.0); NEUT % 43.9 % (50.0-75.0); NRBC % 0.1 % (0.0-2.0); PLATELET COUNT 167 K/uL (130-400); RED CELL DISTRIBUTION WIDTH 17.2 % (11.5-14.5)
[2018-06-28 12:02] LABS: WHITE BLOOD COUNT 1.7 K/uL (4.8-10.8)
[2018-06-28 12:30] LABS: LYMPHOCYTE 22 % (20-40); MONOCYTE 34 % (0-10); NEUTROPHIL 44 % (50-75); TOTAL CELLS COUNTED 50
[2018-06-28 12:31] LABS: ANISOCYTOSIS SLIGHT; HYPOCHROMIC SLIGHT; PLATELET ESTIMATE NORMAL (NORMAL); POIKILOCYTOSIS SLIGHT
[2018-06-28 12:32] LABS: TARGET CELLS SLIGHT
--- NOTE | 2018-06-28 14:11 | CP.PCM.PN ---
Subjective - Date & Time of Evaluation Date of Evaluation: 06/28/18 Time of Evaluation: 07:45 - Subjective Subjective: clinically same Objective - Vital Signs/Intake and Output Vital Signs (last 24 hours): Temp Pulse Resp BP Pulse Ox 98.1 F 117 H 20 97/66 L 97 06/28/18 08:14 06/28/18 08:14 06/28/18 08:14 06/28/18 08:14 06/28/18 08:14 Intake and Output: 06/28/18 06/28/18 06:59 18:59 Intake Total 180 Balance 180 - Medications Medications: Current Medications Acetaminophen (Tylenol 325mg Tab) 650 mg PO Q6 PRN PRN Reason: Fever >100.4 F Artificial Tears (Artificial Tears) 0.1 ml OU Q4H PRN PRN Reason: dry eyes Enoxaparin Sodium (Lovenox) 40 mg SC DAILY [facility] Last Admin: 06/28/18 10:32 Dose: 40 mg Fluticasone/Vilanterol (Breo Ellipta 200-25 Mcg Inh) 1 puff INH RQD [facility] Last Admin: 06/28/18 07:35 Dose: 1 puff Folic Acid (Folic Acid) 1 mg PO DAILY [facility] Last Admin: 06/28/18 10:31 Dose: 1 mg Magnesium Hydroxide (Milk Of Magnesia) 30 ml PO DAILY [facility] Stop: 07/01/18 10:01 Last Admin: 06/28/18 10:32 Dose: Not Given Ondansetron HCl (Zofran Inj) 4 mg IVP Q6H PRN PRN Reason: nausea and vomiting Last Admin: 06/23/18 22:15 Dose: 4 mg - Labs Labs: 06/28/18 11:29 06/27/18 08:05 PT 13.5 SECONDS (9.7-12.2) H 06/24/18 14:13 INR 1.2 06/24/18 14:13 APTT 27 SECONDS (21-34) 06/24/18 14:13
--- NOTE | 2018-06-28 18:13 | CP.PCM.PN ---
Subjective - Date & Time of Evaluation Date of Evaluation: 06/28/18 Time of Evaluation: 18:12 - Subjective Subjective: Patient seen and examined No events overnight Objective - Vital Signs/Intake and Output Vital Signs (last 24 hours): Temp Pulse Resp BP Pulse Ox 98.1 F 111 H 20 95/67 L 95 06/28/18 17:06 06/28/18 17:06 06/28/18 17:06 06/28/18 17:06 06/28/18 17:06 Intake and Output: 06/28/18 06/28/18 06:59 18:59 Intake Total 680 Balance 680 - Medications Medications: Current Medications Acetaminophen (Tylenol 325mg Tab) 650 mg PO Q6 PRN PRN Reason: Fever >100.4 F Artificial Tears (Artificial Tears) 0.1 ml OU Q4H PRN PRN Reason: dry eyes Enoxaparin Sodium (Lovenox) 40 mg SC DAILY [facility] Last Admin: 06/28/18 10:32 Dose: 40 mg Fentanyl (Duragesic) 1 patch TD Q72H [facility] Fluticasone/Vilanterol (Breo Ellipta 200-25 Mcg Inh) 1 puff INH RQD [facility] Last Admin: 06/28/18 07:35 Dose: 1 puff Folic Acid (Folic Acid) 1 mg PO DAILY [facility] Last Admin: 06/28/18 10:31 Dose: 1 mg Hydromorphone HCl (Dilaudid) 1 mg IVP Q4H PRN PRN Reason: Pain, severe (8-10) Magnesium Hydroxide (Milk Of Magnesia) 30 ml PO DAILY [facility] Stop: 07/01/18 10:01 Last Admin: 06/28/18 10:32 Dose: Not Given Ondansetron HCl (Zofran Inj) 4 mg IVP Q6H PRN PRN Reason: nausea and vomiting Last Admin: 06/23/18 22:15 Dose: 4 mg - Labs Labs: 06/28/18 11:29 06/27/18 08:05 PT 13.5 SECONDS (9.7-12.2) H 06/24/18 14:13 INR 1.2 06/24/18 14:13 APTT 27 SECONDS (21-34) 06/24/18 14:13 - Head Exam Head Exam: NORMAL INSPECTION - Eye Exam Eye Exam: Normal appearance - ENT Exam ENT Exam: Mucous Membranes Moist - Neck Exam Neck Exam: Normal Inspection - Respiratory Exam Respiratory Exam: Decreased Breath Sounds - Cardiovascular Exam Cardiovascular Exam: REGULAR RHYTHM, +S1, +S2 - GI/Abdominal Exam GI & Abdominal Exam: Soft, Normal Bowel Sounds - Extremities Exam Extremities Exam: Normal Inspection Assessment and Plan (1) COPD (chronic obstructive pulmonary disease) Status: Acute (2) Chronic pain due to neoplasm Status: Acute (3) History of pneumonectomy Status: Acute (4) Metastatic lung cancer (metastasis from lung to other site) Status: Acute (5) Unable to ambulate Status: Acute - Assessment and Plan (Free Text) Plan: Pain control Breo Ellipta Bronchodilators Follow WBC D/C planning if WBC continues to improve DVT/GI prophalaxis
[2018-06-28] MEDS: HYDROmorphone 1 mg/ml ISec IVP PRN ×2 (18:18→23:55)
[2018-06-29] MEDS: Fluticasone-Vilanterol 200/25mcg Diskus INH SCH (07:35)
[2018-06-29] MEDS: HYDROmorphone 1 mg/ml ISec IVP PRN ×3 (08:28→18:27)
[2018-06-29 08:31] LABS: BASO % 0.4 % (0.0-2.0); EOS % 0.4 % (0.0-4.0); LYMPH # 0.4 K/uL (1.0-4.3); LYMPH % 25.3 % (20.0-40.0); MEAN CELL VOLUME 87.4 fL (81.0-99.0); MEAN CORPUSCULAR HEMOGLOBIN 27.7 pg (27.0-31.0); MEAN CORPUSCULAR HGB CONC 31.7 g/dL (33.0-37.0); MONO # 0.4 K/uL (0.0-0.8); MONO % 28.1 % (0.0-10.0); NEUT # 0.7 K/uL (1.8-7.0); NEUT % 45.8 % (50.0-75.0); NRBC % 0.3 % (0.0-2.0); PLATELET COUNT 160 K/uL (130-400); RBC 3.27 Mil/uL (3.80-5.20); RED CELL DISTRIBUTION WIDTH 17.2 % (11.5-14.5)
[2018-06-29 08:36] LABS: WHITE BLOOD COUNT 1.5 K/uL (4.8-10.8)
[2018-06-29 09:03] LABS: BASOPHIL 2 % (0-2); LYMPHOCYTE 34 % (20-40); MONOCYTE 32 % (0-10); NEUTROPHIL 32 % (50-75); PLATELET ESTIMATE NORMAL (NORMAL); TOTAL CELLS COUNTED 50
[2018-06-29 09:05] LABS: ANISOCYTOSIS SLIGHT; HYPOCHROMIC SLIGHT; POIKILOCYTOSIS SLIGHT
[2018-06-29 09:06] LABS: LARGE PLATELETS PRESENT
[2018-06-29] MEDS: Enoxaparin 40 mg Syringe SC SCH (09:35)
[2018-06-29] MEDS: Magnesium Hydroxide Susp 30 ml UD PO SCH (09:36)
--- NOTE | 2018-06-29 16:56 | CP.PCM.PN ---
Subjective - Date & Time of Evaluation Date of Evaluation: 06/29/18 Time of Evaluation: 16:56 - Subjective Subjective: Patient is seen and examined No new complaints Objective - Vital Signs/Intake and Output Vital Signs (last 24 hours): Temp Pulse Resp BP Pulse Ox 97.9 F 103 H 20 94/61 L 95 06/29/18 16:00 06/29/18 16:00 06/29/18 16:00 06/29/18 16:00 06/29/18 16:00 Intake and Output: 06/29/18 06/29/18 06:59 18:59 Intake Total 300 480 Balance 300 480 - Medications Medications: Current Medications Acetaminophen (Tylenol 325mg Tab) 650 mg PO Q6 PRN PRN Reason: Fever >100.4 F Artificial Tears (Artificial Tears) 0.1 ml OU Q4H PRN PRN Reason: dry eyes Enoxaparin Sodium (Lovenox) 40 mg SC DAILY [facility] Last Admin: 06/29/18 09:35 Dose: 40 mg Fentanyl (Duragesic) 1 patch TD Q72H [facility] Last Admin: 06/29/18 09:36 Dose: 1 patch Fluticasone/Vilanterol (Breo Ellipta 200-25 Mcg Inh) 1 puff INH RQD [facility] Last Admin: 06/29/18 07:35 Dose: 1 puff Folic Acid (Folic Acid) 1 mg PO DAILY [facility] Last Admin: 06/29/18 09:36 Dose: 1 mg Hydromorphone HCl (Dilaudid) 1 mg IVP Q4H PRN PRN Reason: Pain, severe (8-10) Last Admin: 06/29/18 13:45 Dose: 1 mg Magnesium Hydroxide (Milk Of Magnesia) 30 ml PO DAILY [facility] Stop: 07/01/18 10:01 Last Admin: 06/29/18 09:36 Dose: 30 ml Ondansetron HCl (Zofran Inj) 4 mg IVP Q6H PRN PRN Reason: nausea and vomiting Last Admin: 06/23/18 22:15 Dose: 4 mg - Labs Labs: 06/29/18 07:05 06/27/18 08:05 PT 13.5 SECONDS (9.7-12.2) H 06/24/18 14:13 INR 1.2 06/24/18 14:13 APTT 27 SECONDS (21-34) 06/24/18 14:13 - Head Exam Head Exam: NORMAL INSPECTION - Eye Exam Eye Exam: Normal appearance - ENT Exam ENT Exam: Mucous Membranes Moist - Respiratory Exam Respiratory Exam: Decreased Breath Sounds - Cardiovascular Exam Cardiovascular Exam: REGULAR RHYTHM, +S1, +S2 - GI/Abdominal Exam GI & Abdominal Exam: Soft, Normal Bowel Sounds - Extremities Exam Extremities Exam: Normal Inspection Assessment and Plan (1) COPD (chronic obstructive pulmonary disease) Status: Acute (2) Chronic pain due to neoplasm Status: Acute (3) History of pneumonectomy Status: Acute (4) Metastatic lung cancer (metastasis from lung to other site) Status: Acute (5) Unable to ambulate Status: Acute (6) Leukopenia Status: Acute - Assessment and Plan (Free Text) Plan: Pain control Breo Ellipta Bronchodilators Follow WBC Neupogen DVT/GI prophalaxis
--- NOTE | 2018-06-29 17:48 | CP.PCM.PN ---
Subjective - Date & Time of Evaluation Date of Evaluation: 06/29/18 Time of Evaluation: 07:45 - Subjective Subjective: clinically same Objective - Vital Signs/Intake and Output Vital Signs (last 24 hours): Temp Pulse Resp BP Pulse Ox 97.9 F 103 H 20 94/61 L 95 06/29/18 16:00 06/29/18 16:00 06/29/18 16:00 06/29/18 16:00 06/29/18 16:00 Intake and Output: 06/29/18 06/29/18 06:59 18:59 Intake Total 300 480 Balance 300 480 - Medications Medications: Current Medications Acetaminophen (Tylenol 325mg Tab) 650 mg PO Q6 PRN PRN Reason: Fever >100.4 F Artificial Tears (Artificial Tears) 0.1 ml OU Q4H PRN PRN Reason: dry eyes Enoxaparin Sodium (Lovenox) 40 mg SC DAILY [facility] Last Admin: 06/29/18 09:35 Dose: 40 mg Fentanyl (Duragesic) 1 patch TD Q72H [facility] Last Admin: 06/29/18 09:36 Dose: 1 patch Fluticasone/Vilanterol (Breo Ellipta 200-25 Mcg Inh) 1 puff INH RQD [facility] Last Admin: 06/29/18 07:35 Dose: 1 puff Folic Acid (Folic Acid) 1 mg PO DAILY [facility] Last Admin: 06/29/18 09:36 Dose: 1 mg Hydromorphone HCl (Dilaudid) 1 mg IVP Q4H PRN PRN Reason: Pain, severe (8-10) Last Admin: 06/29/18 13:45 Dose: 1 mg Magnesium Hydroxide (Milk Of Magnesia) 30 ml PO DAILY [facility] Stop: 07/01/18 10:01 Last Admin: 06/29/18 09:36 Dose: 30 ml Ondansetron HCl (Zofran Inj) 4 mg IVP Q6H PRN PRN Reason: nausea and vomiting Last Admin: 06/23/18 22:15 Dose: 4 mg - Labs Labs: 06/29/18 07:05 06/27/18 08:05 PT 13.5 SECONDS (9.7-12.2) H 06/24/18 14:13 INR 1.2 06/24/18 14:13 APTT 27 SECONDS (21-34) 06/24/18 14:13
--- NOTE | 2018-06-30 07:00 | CP.PCM.PN ---
Subjective - Date & Time of Evaluation Date of Evaluation: 06/30/18 Time of Evaluation: 07:00 Objective - Vital Signs/Intake and Output Vital Signs (last 24 hours): Temp Pulse Resp BP Pulse Ox 97 F L 108 H 20 102/59 L 96 06/30/18 00:00 06/30/18 00:00 06/30/18 00:00 06/30/18 00:00 06/30/18 00:00 Intake and Output: 06/30/18 06/30/18 06:59 18:59 Intake Total 450 Balance 450 - Medications Medications: Current Medications Acetaminophen (Tylenol 325mg Tab) 650 mg PO Q6 PRN PRN Reason: Fever >100.4 F Artificial Tears (Artificial Tears) 0.1 ml OU Q4H PRN PRN Reason: dry eyes Enoxaparin Sodium (Lovenox) 40 mg SC DAILY [facility] Last Admin: 06/29/18 09:35 Dose: 40 mg Fentanyl (Duragesic) 1 patch TD Q72H [facility] Last Admin: 06/29/18 09:36 Dose: 1 patch Fluticasone/Vilanterol (Breo Ellipta 200-25 Mcg Inh) 1 puff INH RQD [facility] Last Admin: 06/29/18 07:35 Dose: 1 puff Folic Acid (Folic Acid) 1 mg PO DAILY [facility] Last Admin: 06/29/18 09:36 Dose: 1 mg Hydromorphone HCl (Dilaudid) 1 mg IVP Q4H PRN PRN Reason: Pain, severe (8-10) Last Admin: 06/29/18 18:27 Dose: 1 mg Magnesium Hydroxide (Milk Of Magnesia) 30 ml PO DAILY [facility] Stop: 07/01/18 10:01 Last Admin: 06/29/18 09:36 Dose: 30 ml Ondansetron HCl (Zofran Inj) 4 mg IVP Q6H PRN PRN Reason: nausea and vomiting Last Admin: 06/23/18 22:15 Dose: 4 mg - Labs Labs: 06/29/18 07:05 06/27/18 08:05 PT 13.5 SECONDS (9.7-12.2) H 06/24/18 14:13 INR 1.2 06/24/18 14:13 APTT 27 SECONDS (21-34) 06/24/18 14:13
[2018-06-30 07:38] LABS: BASO % 0.2 % (0.0-2.0); EOS % 0.1 % (0.0-4.0); HEMOGLOBIN 9.2 g/dL (11.0-16.0); LYMPH # 0.5 K/uL (1.0-4.3); LYMPH % 7.9 % (20.0-40.0); MEAN CELL VOLUME 87.7 fL (81.0-99.0); MEAN CORPUSCULAR HEMOGLOBIN 28.5 pg (27.0-31.0); MEAN CORPUSCULAR HGB CONC 32.5 g/dL (33.0-37.0); MEAN PLATELET VOLUME 8.1 fL (7.2-11.7); MONO # 0.7 K/uL (0.0-0.8); MONO % 11.6 % (0.0-10.0); NEUT # 4.6 K/uL (1.8-7.0); NEUT % 80.2 % (50.0-75.0); PLATELET COUNT 142 K/uL (130-400); RBC 3.23 Mil/uL (3.80-5.20); RED CELL DISTRIBUTION WIDTH 16.9 % (11.5-14.5)
[2018-06-30] MEDS: Fluticasone-Vilanterol 200/25mcg Diskus INH SCH (07:40)
[2018-06-30 07:50] LABS: WHITE BLOOD COUNT 5.7 K/uL (4.8-10.8)
[2018-06-30] MEDS: HYDROmorphone 1 mg/ml ISec IVP PRN ×4 (08:04→23:30)
[2018-06-30 09:11] LABS: ANISOCYTOSIS SLIGHT; BANDS 8 % (0-2); LYMPHOCYTE 8 % (20-40); MONOCYTE 8 % (0-10); NEUTROPHIL 76 % (50-75); PLATELET ESTIMATE NORMAL (NORMAL); TOTAL CELLS COUNTED 100
[2018-06-30 09:12] LABS: HYPOCHROMIC SLIGHT; OVALOCYTES SLIGHT; POLYCHROMIC SLIGHT
[2018-06-30] MEDS: Magnesium Hydroxide Susp 30 ml UD PO SCH (09:38)
[2018-06-30] MEDS: Enoxaparin 40 mg Syringe SC SCH (09:38)
--- NOTE | 2018-06-30 14:09 | CP.PCM.PN ---
Subjective - Date & Time of Evaluation Date of Evaluation: 06/30/18 Time of Evaluation: 14:08 - Subjective Subjective: Patient is seen and examined No events overnight WBC 5.7 today Objective - Vital Signs/Intake and Output Vital Signs (last 24 hours): Temp Pulse Resp BP Pulse Ox 97.3 F L 105 H 20 98/65 L 97 06/30/18 08:00 06/30/18 08:00 06/30/18 08:00 06/30/18 08:00 06/30/18 08:00 Intake and Output: 06/30/18 06/30/18 06:59 18:59 Intake Total 450 Balance 450 - Medications Medications: Current Medications Acetaminophen (Tylenol 325mg Tab) 650 mg PO Q6 PRN PRN Reason: Fever >100.4 F Artificial Tears (Artificial Tears) 0.1 ml OU Q4H PRN PRN Reason: dry eyes Enoxaparin Sodium (Lovenox) 40 mg SC DAILY [facility] Last Admin: 06/30/18 09:38 Dose: 40 mg Fentanyl (Duragesic) 1 patch TD Q72H [facility] Last Admin: 06/29/18 09:36 Dose: 1 patch Fluticasone/Vilanterol (Breo Ellipta 200-25 Mcg Inh) 1 puff INH RQD [facility] Last Admin: 06/30/18 07:40 Dose: 1 puff Folic Acid (Folic Acid) 1 mg PO DAILY [facility] Last Admin: 06/30/18 09:38 Dose: 1 mg Hydromorphone HCl (Dilaudid) 1 mg IVP Q4H PRN PRN Reason: Pain, severe (8-10) Last Admin: 06/30/18 14:04 Dose: 1 mg Magnesium Hydroxide (Milk Of Magnesia) 30 ml PO DAILY [facility] Stop: 07/01/18 10:01 Last Admin: 06/30/18 09:38 Dose: 30 ml Ondansetron HCl (Zofran Inj) 4 mg IVP Q6H PRN PRN Reason: nausea and vomiting Last Admin: 06/23/18 22:15 Dose: 4 mg - Labs Labs: 06/30/18 06:58 06/27/18 08:05 PT 13.5 SECONDS (9.7-12.2) H 06/24/18 14:13 INR 1.2 06/24/18 14:13 APTT 27 SECONDS (21-34) 06/24/18 14:13 - Head Exam Head Exam: NORMAL INSPECTION - Eye Exam Eye Exam: Normal appearance - ENT Exam ENT Exam: Mucous Membranes Moist - Respiratory Exam Respiratory Exam: Clear to Ausculation Bilateral - Cardiovascular Exam Cardiovascular Exam: REGULAR RHYTHM, +S1, +S2 - GI/Abdominal Exam GI & Abdominal Exam: Soft, Normal Bowel Sounds - Extremities Exam Extremities Exam: Normal Inspection - Neurological Exam Neurological Exam: Alert, Oriented x3 Assessment and Plan (1) COPD (chronic obstructive pulmonary disease) Status: Acute (2) Chronic pain due to neoplasm Status: Acute (3) History of pneumonectomy Status: Acute (4) Metastatic lung cancer (metastasis from lung to other site) Status: Acute (5) Unable to ambulate Status: Acute (6) Leukopenia Status: Acute - Assessment and Plan (Free Text) Plan: Breo Ellipta Bronchodilators Follow WBC Neupogen DVT/GI prophalaxis
--- NOTE | 2018-06-30 17:16 | CP.PCM.PN ---
Subjective - Date & Time of Evaluation Date of Evaluation: 06/30/18 Time of Evaluation: 07:45 - Subjective Subjective: clinically same Objective - Vital Signs/Intake and Output Vital Signs (last 24 hours): Temp Pulse Resp BP Pulse Ox 98.1 F 107 H 20 92/60 L 98 06/30/18 16:08 06/30/18 16:08 06/30/18 16:08 06/30/18 16:08 06/30/18 16:08 Intake and Output: 06/30/18 06/30/18 06:59 18:59 Intake Total 450 480 Balance 450 480 - Medications Medications: Current Medications Acetaminophen (Tylenol 325mg Tab) 650 mg PO Q6 PRN PRN Reason: Fever >100.4 F Artificial Tears (Artificial Tears) 0.1 ml OU Q4H PRN PRN Reason: dry eyes Enoxaparin Sodium (Lovenox) 40 mg SC DAILY [facility] Last Admin: 06/30/18 09:38 Dose: 40 mg Fentanyl (Duragesic) 1 patch TD Q72H [facility] Last Admin: 06/29/18 09:36 Dose: 1 patch Fluticasone/Vilanterol (Breo Ellipta 200-25 Mcg Inh) 1 puff INH RQD [facility] Last Admin: 06/30/18 07:40 Dose: 1 puff Folic Acid (Folic Acid) 1 mg PO DAILY [facility] Last Admin: 06/30/18 09:38 Dose: 1 mg Hydromorphone HCl (Dilaudid) 1 mg IVP Q4H PRN PRN Reason: Pain, severe (8-10) Last Admin: 06/30/18 14:04 Dose: 1 mg Magnesium Hydroxide (Milk Of Magnesia) 30 ml PO DAILY [facility] Stop: 07/01/18 10:01 Last Admin: 06/30/18 09:38 Dose: 30 ml Ondansetron HCl (Zofran Inj) 4 mg IVP Q6H PRN PRN Reason: nausea and vomiting Last Admin: 06/23/18 22:15 Dose: 4 mg - Labs Labs: 06/30/18 06:58 06/27/18 08:05 PT 13.5 SECONDS (9.7-12.2) H 06/24/18 14:13 INR 1.2 06/24/18 14:13 APTT 27 SECONDS (21-34) 06/24/18 14:13
[2018-07-01] MEDS: HYDROmorphone 1 mg/ml ISec IVP PRN (05:57)
[2018-07-01 06:50] LABS: BASO % 0.1 % (0.0-2.0); HEMOGLOBIN 9.1 g/dL (11.0-16.0); LYMPH # 0.6 K/uL (1.0-4.3); LYMPH % 6.4 % (20.0-40.0); MEAN CORPUSCULAR HEMOGLOBIN 28.3 pg (27.0-31.0); MEAN CORPUSCULAR HGB CONC 32.6 g/dL (33.0-37.0); MEAN PLATELET VOLUME 8.2 fL (7.2-11.7); MONO # 0.7 K/uL (0.0-0.8); MONO % 7.1 % (0.0-10.0); NEUT # 8.5 K/uL (1.8-7.0); NEUT % 86.4 % (50.0-75.0); NRBC % 0.1 % (0.0-2.0); PLATELET COUNT 135 K/uL (130-400); RBC 3.22 Mil/uL (3.80-5.20); RED CELL DISTRIBUTION WIDTH 17.3 % (11.5-14.5); WHITE BLOOD COUNT 9.8 K/uL (4.8-10.8)
[2018-07-01 07:31] VITALS: BP 96/63; PULSE 103; TEMP 97.3; O2SAT 96
[2018-07-01 08:16] LABS: ANISOCYTOSIS SLIGHT; BANDS 9 % (0-2); LYMPHOCYTE 12 % (20-40); MONOCYTE 5 % (0-10); NEUTROPHIL 74 % (50-75); PLATELET ESTIMATE NORMAL (NORMAL); TOTAL CELLS COUNTED 100
[2018-07-01 08:17] LABS: HYPOCHROMIC SLIGHT; POLYCHROMIC SLIGHT
[2018-07-01 08:18] LABS: OVALOCYTES SLIGHT
[2018-07-01] MEDS: Magnesium Hydroxide Susp 30 ml UD PO SCH (09:35)
[2018-07-01] MEDS: Enoxaparin 40 mg Syringe SC SCH (09:36)
[2018-07-01] MEDS: Fluticasone-Vilanterol 200/25mcg Diskus INH SCH (10:45)
--- NOTE | 2018-07-01 14:46 | CON ---
DATE: 07/01/2018 HISTORY OF PRESENT ILLNESS: A 58-year-old woman with lung cancer widely metastatic to her bones. She received chemotherapy two weeks ago and the white count has just stayed down to about 1. We gave her the Granix and her white count is now back up to 9.8. ASSESSMENT AND PLAN: So, at this point, we are going to do several things: 1. Give her a last dose of Granix #3 and she will be able to go home today. 2. She also has to go home on the fentanyl patch 125 mcg every 3 days. 3. I will see her Thursday in the office for chemotherapy and to reevaluate how she is doing, but she will be able to go home today. Joel Taylor MD
--- NOTE | 2018-07-01 17:22 | CP.PCM.PN ---
Subjective - Date & Time of Evaluation Date of Evaluation: 07/01/18 Time of Evaluation: 08:00 - Subjective Subjective: alert and orientedx3, denies acute pain or distress. Objective - Vital Signs/Intake and Output Vital Signs (last 24 hours): Temp Pulse Resp BP Pulse Ox 97.3 F L 103 H 20 96/63 L 96 07/01/18 07:30 07/01/18 07:30 07/01/18 07:30 07/01/18 07:30 07/01/18 07:30 Intake and Output: 07/01/18 07/01/18 06:59 18:59 Intake Total 350 360 Balance 350 360 - Labs Labs: 07/01/18 06:39 06/27/18 08:05 PT 13.5 SECONDS (9.7-12.2) H 06/24/18 14:13 INR 1.2 06/24/18 14:13 APTT 27 SECONDS (21-34) 06/24/18 14:13 Assessment and Plan - Assessment and Plan (Free Text) Assessment: 58 year old female with lung cancer, seen and examined. Alert and orientedx3, pain is much controlled with fentanyl patch. Discussed with DR Min Zambrano, plan to discharge home today. Advised to follow up with DR Taylor in the office on Thursday for further treatments.
== END 2018-07-01 12:03 | disposition home or self-care (01) | DRG 180 ==
LOC: C.ER 11:36 → C.3T 16:29
PROVIDERS: ADMIT Internal Medicine Critical Care Medicine; ATTEND Internal Medicine Critical Care Medicine
PROC: 02HV33Z Insertion of Infusion Device into Superior Vena Cava, Percutaneous Approach (ICD-10-PCS; principal; 2018-06-25 09:00)
DX: C34.90 Malignant neoplasm of unspecified part of unspecified bronchus or lung (principal); J18.9 Pneumonia, unspecified organism; C79.51 Secondary malignant neoplasm of bone; E86.0 Dehydration; E87.6 Hypokalemia; G89.3 Neoplasm related pain (acute) (chronic); J44.9 Chronic obstructive pulmonary disease, unspecified; Z87.891 Personal history of nicotine dependence; D72.819 Decreased white blood cell count, unspecified